=== PATIENT | male | born 1990 | race Caucasian/White ===

== ENCOUNTER 2017-11-30 18:25 | Emergency (ER) | payer MEDICAID, SELFPAY ==
[2017-11-30 18:29] VITALS: BP 158/112; PULSE 87; RESP 16; TEMP 36.5; O2SAT 96; BMI 20.5
[2017-11-30 18:47] LABS: Microscopic, Urine URINE MICROSCOPIC (MICROSCOPIC)
[2017-11-30 18:49] LABS: Appearance,Urine CLEAR (Clear); Bilirubin,Urine Negative (Negative); Blood, Urine Negative (Negative); Color,Urine YELLOW (Yellow); Glucose,Urine (UA) Negative (Negative); Ketones,Urine Negative (Negative); Leukocyte Esterase,Urine Negative (Negative); Nitrate,Urine Negative (Negative); PH,Urine 5.5 (5.0-8.5); Protein,Urine Negative (Negative); Specific Gravity, Urine >= 1.030 (1.005-1.030); Urobilinogen,Urine 0.2 EU/dl (0.2)
[2017-11-30 18:51] LABS: Amorphous Sediment,Urine Trace /lpf; Mucus,Urine Trace /lpf; Squamous Epithelial Cell,Urine Occasional #/hpf (0-5)
--- NOTE | 2017-11-30 20:30 | HMH.EDGENADL ---
ED Disposition Clinical Impression: Low back pain Qualifiers: Chronicity: acute Back pain laterality: midline Sciatica presence: without sciatica Qualified Code(s): M54.5 - Low back pain Disposition: Home, Self-Care Condition on Discharge: Good Instructions: DI for Low Back Pain Additional Instructions: You are being provided with a list of physicians available for follow-up of your condition. Please call a physician on this list to arrange a follow-up appointment as soon as possible. Additional instructions for BACK PAIN: See your physician as soon as possible for further evaluation. Return immediately if back pain becomes intolerable, or if fever, numbness or weakness of your legs, loss of control of your bowels or bladder. Prescriptions: Ibuprofen [Ibuprofen 800mg Tab] 800 mg PO Q8HP PRN #15 tab PRN Reason: Moderate Pain Methocarbamol [Robaxin 750mg Tab] 750 mg PO QIDP PRN #20 tab PRN Reason: Muscle Spasm - Critical Care Critical Care Time: No Attestation: On 11/30/17, the high probability of a clinically significant, sudden or life threatening deterioration of the following system(s) required my full and direct attention, intervention and personal management. The time I documented below is in addition to time spent performing reported procedures but includes the following listed in this critical care notation. Medical Decision Making - Teddy Inquiry Pt receiving controlled substance: No Vital Signs: 11/30/17 18:29 11/30/17 20:37 Temperature 97.7 F Temperature Source Oral Pulse Rate [Brachial] 87 79 Respiratory Rate 16 16 Blood Pressure [Right Arm] 158/112 148/80 Blood Pressure Mean [Right Arm] 127 102 Blood Pressure Source [Right Arm] Automatic Cuff Manual Cuff/ Auscultation Blood Pressure Position [Right Arm] Sitting Supine 02 Sat by Pulse Oximetry 96 100 Oxygen Delivery Method Room Air Room Air - Lab Data Lab Results 11/30/17 18:43: Urine Color Yellow, Urine Appearance Clear, Urine pH 5.5, Ur Specific [place] >= 1.030, Urine Protein Negative, Urine Glucose (UA) Negative, Urine Ketones Negative, Urine Blood Negative, Urine Nitrate Negative, Urine Bilirubin Negative, Urine Urobilinogen 0.2, Ur Leukocyte Esterase Negative, Urine WBC 5-10, Ur Squamous Epith Cells Occasional, Amorphous Sediment Trace, Urine Mucus Trace Orders (Tests/Meds): ED MEDICATIONS Discontinued Medications Generic Name Dose Route Start Last Admin Trade Name Willam PRN Reason Stop Dose Admin Ibuprofen 800 mg 11/30/17 20:37 Motrin 400mg Tablet PO 11/30/17 20:38 ONCE ONE Methocarbamol 500 mg 11/30/17 20:43 Methocarbamol 500mg Tablet PO 11/30/17 20:44 ONCE ONE ORDERS Category Date Time Status Lumbar spine minimum 4 views [XR lumbar spine min 4V] Exams 11/30/17 20:36 Taken Stat Medical Decision Narrative: I estimate there is LOW risk for ABDOMINAL AORTIC ANEURYSM, ACUTE AORTIC DISSECTION, CAUDA EQUINA SYNDROME, EPIDURAL MASS LESION, OR CORD COMPRESSION, thus I consider the discharge disposition reasonable. General Adult HPI - General Chief complaint: Back Pain/Injury Stated complaint: Back Pain Time Seen by Provider: 11/30/17 20:30 Mode of Arrival: Ambulatory Limitations: No Limitations Description of Symptoms (Recalled from ER Triage Doc. by RN): LOWER BACK PAIN STARTED THIS MORNING - History of Present Illness HPI narrative: The patient complains of a 1-2 day history of low back pain lower lumbar. Denies radiation, no leg pain. Denies numbness or weakness of extremities. Denies bowel or bladder symptoms and denies loss of bowel or bladder control. No numbness in the groin. No medications taken at home for the pain. He does not recall any injury at all. 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 Did not have any injury at work. No fever. - Related Data Previous Rx's Medication Instructions Recorded Ibuprofen [Ibuprofen 800mg
--- NOTE | 2017-11-30 20:36 | XR_ITS ---
XR lumbar spine min 4V COMPARISON: None HISTORY: Low back pain, no injury TECHNIQUE: AP lateral and oblique views and spot view lumbosacral junction FINDINGS: There is some straightening normal curvature suggesting muscle spasm. L1-L5 appear intact. Disc spaces are well maintained throughout. There is no pars defect. There is no degenerative change. The SI joints are normal. IMPRESSION: Possible mild muscle spasm otherwise normal study
[2017-11-30 20:37] VITALS: BP 148/80; PULSE 79; RESP 16; O2SAT 100
[2017-11-30 21:28] VITALS: BP 151/80; PULSE 82; O2SAT 98
[2017-11-30 21:38] VITALS: BP 0/0; PULSE 0; RESP 0; TEMP -17.7; TEMP 0; O2SAT 0
== END 2017-11-30 21:38 | disposition home or self-care (01) ==
PROVIDERS: Emergency Medicine; Emergency Provider Emergency Medicine
DX: M54.5 Low back pain (principal); F17.210 Nicotine dependence, cigarettes, uncomplicated; Z88.0 Allergy status to penicillin; Z88.6 Allergy status to analgesic agent
CPT/HCPCS: 72110; 81001; 99282

== ENCOUNTER 2017-12-18 17:10 | Emergency (ER) | payer MEDICAID, SELFPAY ==
[2017-12-18 17:22] VITALS: BP 141/103; PULSE 92; RESP 18; TEMP 36.9; O2SAT 97; BMI 20.4
--- NOTE | 2017-12-18 17:36 | HMH.EDUTC ---
[facility] [place] Clinical Impression: Finger injury Qualifiers: Encounter type: initial encounter Laterality: right Qualified Code(s): S69.91XA - Unspecified injury of right wrist, hand and finger(s), initial encounter Disposition: Home, Self-Care Condition on Discharge: Good Instructions: DI for Laceration Repair -- Finger, DI for Laceration Repair With Dermabond Additional Instructions: Follow up with family doctor Keep wound area clean and dry Take medication as prescribed If you see redness or swelling to the area that may indicate infection go straight to Family doctor or ER as needed Over the counter Motrin or Tylenol as needed for fever or pain Prescriptions: cephALEXin [Keflex 500mg Cap] 500 mg PO Q6H #28 cap Time of Disposition: 18:09 Medical Decision Making - Medical Records Medical records reviewed: Yes: I reviewed the patient's medical records. - Teddy Inquiry Pt receiving controlled substance: No Teddy was queried for this patient: No Vital Signs: 12/18/17 17:22 Temperature 98.4 F Temperature Source Temporal Artery Scan Pulse Rate [Brachial] 92 H Respiratory Rate 18 Blood Pressure [Right Arm] 141/103 Blood Pressure Mean [Right Arm] 115 Blood Pressure Position [Right Arm] Sitting 02 Sat by Pulse Oximetry 97 - Reevaluation(s) Time: 18:03 Reevaluation #1: Finger was soaked in hybacleanse and sterile water to clean wound. Wound area cleaned well with 4x4 and betadine Patient tolerated well. superficial wound skin peeled back Skin flap closed with dermabond Patient tolerated well Patient state that he is allergic to Penicillin but he is able to take Keflex without reaction [facility] [place] HPI - General Stated complaint: ao [id number] lac r hand 3 finger Time Seen by Provider: 12/18/17 17:40 Mode of Arrival: Ambulatory Source of Information: Patient Limitations: No Limitations Description of Symptoms (Recalled from Triage Doc. by RN): CUT RT INDEX FINGER AROUND 8AM. CLOSED CUT TO FINGER, DIRTY AND NOT BLEEDING. 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 raked his right index finger over a nail causing a small cut on his finger State that he continued to work throughout the day and noticed at the end of the day the wound was closed and there was dirt under the skin States that the looked at it and it wasn't deep but pulled the skin back on his finger and he had dirt all under the flap of skin State that he tried to get it cleaned out but couldn't and was worried that it may get infected so he came up to have it looked at - Related Data Previous Rx's Medication Instructions Recorded cephALEXin [Keflex 500mg Cap] 500 mg PO Q6H #28 cap 12/18/17 Allergies Allergy/AdvReac Type Severity Reaction Status Date / Time codeine [CODEINE] Allergy Mild Verified 11/30/17 18:33 Penicillins [PENICILLINS] Allergy Unknown Verified 11/30/17 18:33 - Worker's Comp Is this a Worker's Comp case?: No [facility] History I have reviewed the patient's past medical history: Yes - Social History Smoking Status: Current every day smoker Tobacco Type: cigarettes Alcohol Intake: never - Psychiatric History Expresses thoughts of harming self/others: None Suicide Plan Description: No Plan ROS Obtained: Yes All systems reviewed & no additional complaints Physical Exam - General General appearance: alert, in no apparent distress - ENT ENT exam: Present: normal exam, normal oropharynx, mucous membranes moist, TM's normal bilaterally, normal external ear exam - Respiratory Respiratory exam: Present: normal lung sounds bilaterally. Absent: respiratory distress - Cardiovascular Cardiovascular exam: Present: re
--- NOTE | 2017-12-18 17:56 | ED_ITS ---
[facility] [place] Disposition Clinical Impression: Finger injury Qualifiers: Encounter type: initial encounter Laterality: right Qualified Code(s): S69.91XA - Unspecified injury of right wrist, hand and finger(s), initial encounter Disposition: Home, Self-Care Condition on Discharge: Good Instructions: DI for Laceration Repair -- Finger, DI for Laceration Repair With Dermabond Additional Instructions: Follow up with family doctor Keep wound area clean and dry Take medication as prescribed If you see redness or swelling to the area that may indicate infection go straight to Family doctor or ER as needed Over the counter Motrin or Tylenol as needed for fever or pain Prescriptions: cephALEXin [Keflex 500mg Cap] 500 mg PO Q6H #28 cap Time of Disposition: 18:09 Medical Decision Making - Medical Records Medical records reviewed: Yes: I reviewed the patient's medical records. - Teddy Inquiry Pt receiving controlled substance: No Teddy was queried for this patient: No Vital Signs: 12/18/17 17:22 Temperature 98.4 F Temperature Source Temporal Artery Scan Pulse Rate [Brachial] 92 H Respiratory Rate 18 Blood Pressure [Right Arm] 141/103 Blood Pressure Mean [Right Arm] 115 Blood Pressure Position [Right Arm] Sitting 02 Sat by Pulse Oximetry 97 - Reevaluation(s) Time: 18:03 Reevaluation #1: Finger was soaked in hybacleanse and sterile water to clean wound. Wound area cleaned well with 4x4 and betadine Patient tolerated well. superficial wound skin peeled back Skin flap closed with dermabond Patient tolerated well Patient state that he is allergic to Penicillin but he is able to take Keflex without reaction [facility] [place] HPI - General Stated complaint: ao [id number] lac r hand 3 finger Time Seen by Provider: 12/18/17 17:40 Mode of Arrival: Ambulatory Source of Information: Patient Limitations: No Limitations Description of Symptoms (Recalled from Triage Doc. by RN): CUT RT INDEX FINGER AROUND 8AM. CLOSED CUT TO FINGER, DIRTY AND NOT BLEEDING. 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 raked his right index finger over a nail causing a small cut on his finger State that he continued to work throughout the day and noticed at the end of the day the wound was closed and there was dirt under the skin States that the looked at it and it wasn't deep but pulled the skin back on his finger and he had dirt all under the flap of skin State that he tried to get it cleaned out but couldn't and was worried that it may get infected so he came up to have it looked at - Related Data Previous Rx's Medication Instructions Recorded cephALEXin [Keflex 500mg Cap] 500 mg PO Q6H #28 cap 12/18/17 Allergies Allergy/AdvReac Type Severity Reaction Status Date / Time codeine [CODEINE] Allergy Mild Verified 11/30/17 18:33 Penicillins [PENICILLINS] Allergy Unknown Verified 11/30/17 18:33 - Worker's Comp Is this a Worker's Comp case?: No [facility] History I have reviewed the patient's past medical history: Yes - Social History Smoking Status: Current every day smoker Tobacco Type: cigarettes Alcoho
[2017-12-18 18:07] VITALS: BP 141/103; PULSE 92; RESP 18; TEMP 36.9; O2SAT 97
== END 2017-12-18 18:13 | disposition home or self-care (01) ==
PROVIDERS: Emergency Provider Nurse Practitioner
DX: S61.210A Laceration without foreign body of right index finger without damage to nail, initial encounter (principal); W45.0XXA Nail entering through skin, initial encounter; Y92.89 Other specified places as the place of occurrence of the external cause; Z23 Encounter for immunization
CPT/HCPCS: 12001; 90471; 90714; 99201

== ENCOUNTER → 2018-05-09 15:00 | Outpatient (CLI) | payer MEDICAID, SELFPAY | PROVIDERS: PCP Podiatrist; Visit Provider Podiatrist | DX: Z51.89 Encounter for other specified aftercare (principal); L03.90 Cellulitis, unspecified; L02.91 Cutaneous abscess, unspecified | CPT/HCPCS: 87070; 87077; 87186; 87205 ==

== ENCOUNTER → 2018-05-12 16:29 | Outpatient (CLI) | payer MEDICAID, SELFPAY ==
[2018-05-12 16:48] LABS: Basophils % 0.7 % (0.1-2.0); Eosinophils # 0.2 K/mm3 (0.0-0.4); Eosinophils % 3.2 % (0.1-12.0); Hematocrit 47.1 % (42.0-52.0); Hemoglobin 15.7 g/dL (14.1-18.0); Lymphocytes # 3.6 K/mm3 (0.7-4.5); Lymphocytes % 57.8 K/mm3 (10-50); Mean Corpuscular HGB Conc 33.4 g/dL (31.8-35.4); Mean Corpuscular Hemoglobin 30.9 pg (27.0-31.2); Mean Corpuscular Volume 92.3 fl (80-94); Mean Platelet Volume 6.9 fl (7.4-10.4); Monocytes # 0.6 K/mm3 (0.1-1.0); Neutrophils # 1.8 K/mm3 (1.8-7.8); Neutrophils % 28.3 % (37.0-80.0); Platelet Count 383 K/mm3 (142-424); White Blood Count 6.2 K/mm3 (4.8-10.8)
[2018-05-12 16:52] LABS: MANUAL DIFFERENTIAL MANUAL DIFFERENTIAL (MANUAL DIFF)
[2018-05-12 17:27] LABS: Alanine Aminotransferase 22 U/L (12-78); Albumin Level 4.1 gm/dL (3.4-5.0); Albumin/Globulin Ratio 1.1 (1.1-1.8); Alkaline Phosphatase 69 U/L (46-116); Anion Gap 11.2 mEq/L (5-15); Aspartate Amino Transferase 21 U/L (15-37); Bilirubin,Total 0.2 mg/dL (0.2-1.0); Blood Urea Nitrogen 7 mg/dL (7-18); C-Reactive Protein < 0.2 mg/L (0.0-0.9); Calcium 9.3 mg/dL (8.5-10.1); Carbon Dioxide 31 mmol/L (21.0-32.0); Chloride 101 mmol/L (98-107); Creatinine,Serum 1.01 mg/dL (0.70-1.30); Estimated Glomerular Filt Rate 90 ml/min (>60); GFR (African American) 109 ML/MIN (>60); Globulin 3.7 gm/dl (1.3-3.2); Glucose 93 mg/dL (74-106); Potassium 4.2 mmoL/L (3.5-5.1); Sodium 139 mmol/L (136-145); Total Protein,Serum 7.8 gm/dL (6.4-8.2)
[2018-05-12 17:32] LABS: Eosinophils % 5 % (0-3); Lymphocytes % 45 % (10-50); Monocytes % 6 % (2-9); Neutrophils % 39 % (42-76); Platelet Estimate Normal; RBC Morphology Normal; Total Cells Counted 100
[2018-05-12 17:50] LABS: Erythrocyte Sedimentation Rate 18 mm/hr (0-15)
== END ==
PROVIDERS: PCP Podiatrist; Visit Provider Podiatrist
DX: Z51.89 Encounter for other specified aftercare (principal); L02.91 Cutaneous abscess, unspecified; L03.90 Cellulitis, unspecified
CPT/HCPCS: 36415; 80053; 85007; 85025; 85651; 86140

== ENCOUNTER 2018-06-03 12:56 | Outpatient (RCR) | payer MEDICAID, SELFPAY ==
--- NOTE | 2018-06-03 13:40 | HMH.PTOPWND ---
Rehab Outpt Wound Evaluation Rehab OP Wound Evaluation Start: 06/03/18 13:33 Freq: Status: Active Protocol: Document 06/03/18 13:33 PWASHLEY (Rec: 06/03/18 13:40 [email or web address] [id number]) Electronically Signed By Donaldo Live, PT 06/03/18 13:33 Subjective/History History History This is the initial OP wound clinic evaluation for Calin Kauffman. Pt is a 27 y/o male referred to PT for wound on medial R achilles/calcaneus. Pt rpeorts wound appearred ~ 1-2 weeks ago w/ insidious onset. Subjective Subjective Pt reports he has dreesed wound at home per DPM advice Wound Eval Wound Right Upper Medial Heel Wound Type Blister Is This a Chronic Wound No Wound Length (cm) 0.5 Wound Width (cm) 0.4 Wound Bed Appearance [place] Percentage Granulated (%) 100 Wound Margins Description epithelialized Drainage Amount None Drainage Odor No Odor Dressing Status Dry & Intact Wound Topical Solution/Irrigant Saline Irrigant Antibiotic Irrigant Wound Secondary Dressing Type Absorbant Pad Comment polymem dot Wound Debridement Method Sharps Forceps Wound Debridement Result Stopped Due to Bleeding Dressing Change Date 06/03/18 Wound Closure Date 06/03/18 Dressing Change Patient Tolerance Tolerated Well Wound Problems/Impairments Impairments Problems/Impairmments Wound Care Needs Prognosis Rehab Potential Good Comment wound epithelialized Clinical Impression Consistent with Diagnosis Yes Short Term Goals Number of Weeks 2 Patient to be Ind w/ Home Wound Care/ Yes Dressing Changes [employer] Goals Number of Weeks 4 Decrease Wound Area Yes: 100% Outpatient Therapy Plan of Care Treatment Plan May Include Wound Care Yes Frequency Times per week 1 Duration Number of Weeks 4 Addendums This patient is a candidate for social No or vocational rehab? Patient/Guardian verbally acknowledges Yes understanding of treatment program and consents to further treatment? Patient/Guardian verbally acknowledges Yes understanding of diagnosis, prognosis and goals for treatment? G -code Required No Eval Complexity PT Charges 48993 - Low Complexity
== END 2018-06-03 12:57 | disposition home or self-care (01) ==
LOC: PT 12:56
PROVIDERS: PCP Podiatrist; Visit Provider Podiatrist
DX: Z51.81 Encounter for therapeutic drug level monitoring (principal); L03.115 Cellulitis of right lower limb; B95.62 Methicillin resistant Staphylococcus aureus infection as the cause of diseases classified elsewhere
CPT/HCPCS: 97161

== ENCOUNTER 2020-10-19 23:38 | Emergency (ER) | payer MEDICAID, SELFPAY ==
[2020-10-19 23:38] VITALS: BP 169/112; PULSE 104; RESP 22; TEMP 36.7; O2SAT 98; BMI 19.5
--- NOTE | 2020-10-19 23:46 | ECG_ITS ---
APPROVED REPORT Exam: Resting ECG HR:87 bpm ECG Measurements Heart Rate 87 AXES CO 144 P 81 QRSd 78 QRS 80 QT 354 T 64 QTc 425 Conclusion Normal sinus rhythm ST abnormality, possible digitalis effect Abnormal ECG Electronically signed by : Richard Roger, 10/20/2020 21:16:09
--- NOTE | 2020-10-20 00:07 | XR_ITS ---
PROCEDURE: XR CHEST 2V CLINICAL HISTORY: OD Overdose COMPARISON: No exams were available for comparison FINDINGS: The cardiomediastinal silhouette and pulmonary vascularity are within normal limits. The lungs are clear without infiltrates, suspicious nodules, or pleural effusions. No acute bony abnormalities. IMPRESSION: No acute findings. Dictated by: Zacarias Gabriel MD 10/20/2020 05:10 Zacarias Gabriel MD in OV 10/20/2020 05:10
[2020-10-20 00:08] VITALS: BP 135/89; PULSE 78; RESP 18; O2SAT 98
[2020-10-20 00:21] LABS: Microscopic, Urine URINE MICROSCOPIC (MICROSCOPIC)
[2020-10-20 00:26] LABS: Alanine Aminotransferase 28 U/L (12-78); Albumin/Globulin Ratio 1.6 (1.1-1.8); Alkaline Phosphatase 65 U/L (38-126); Anion Gap 12.5 mEq/L (5-15); Aspartate Amino Transferase 43 U/L (17-59); Bilirubin,Total 0.3 mg/dl (0.2-1.3); Blood Urea Nitrogen 11 mg/dl (9-20); Calcium 9.3 mg/dl (8.4-10.2); Carbon Dioxide 29 mmol/L (22.0-30.0); Chloride 101 mmol/L (98-107); Creatinine Clearance Estimated 97 mL/min (50-200); Estimated Glomerular Filt Rate 115 ml/min (>60); GFR (African American) 139 ML/MIN (>60); Globulin 3.2 g/dL (1.3-3.2); Glucose 237 mg/dl (74-100); Potassium 4.5 mmoL/L (3.5-5.1); Sodium 138 mmol/L (136-145); Total Protein,Serum 8.2 g/dl (6.3-8.2)
[2020-10-20 00:28] LABS: Appearance,Urine CLEAR (Clear); Bilirubin,Urine Negative (Negative); Blood, Urine 1+ (Negative); Color,Urine YELLOW (Yellow); Glucose,Urine (UA) 3+ (Negative); Ketones,Urine Negative (Negative); Leukocyte Esterase,Urine Negative (Negative); Nitrate,Urine Negative (Negative); PH,Urine 5.5 (5.0-8.5); Protein,Urine 2+ (Negative); Specific Gravity, Urine >= 1.030 (1.005-1.030); Urobilinogen,Urine 0.2 EU/dl (0.2)
[2020-10-20 00:30] VITALS: BP 133/93; PULSE 82; RESP 18; O2SAT 98
[2020-10-20 00:30] LABS: Acetaminophen < 10 ug/ml (10-30); Ethyl Alcohol < 10 mg/dl (0-10); Salicylate < 1.0 mg/dL (2.0-20.0)
[2020-10-20 00:36] LABS: Hematocrit 46.7 % (42.0-52.0); Hemoglobin 14.9 g/dL (14.1-18.0); Mean Corpuscular Hemoglobin 30.6 pg (27.0-31.2); Mean Corpuscular Volume 95.8 fl (80-94); Platelet Count 237 K/mm3 (142-424); Red Blood Count 4.88 M/mm3 (4.60-6.20); Red Cell Distribution Width 12.2 % (11.5-17.5); White Blood Count 13.9 K/mm3 (4.8-10.8)
[2020-10-20 00:37] LABS: Basophils # 0.1 K/mm3 (0-0.2); Basophils % 0.3 % (0.1-2.0); Eosinophils % 0.2 % (0.1-12.0); Lymphocytes # 1.2 K/mm3 (0.7-4.5); Lymphocytes % 8.8 % (10-50); Mean Platelet Volume 7.9 fl (7.4-10.4); Monocytes % 7.3 % (1.7-9.3); Neutrophils # 9.4 K/mm3 (1.8-7.8); Neutrophils % 67.5 % (37.0-80.0)
[2020-10-20 00:40] LABS: Troponin I < 0.01 ng/ml (0.00-0.034)
--- NOTE | 2020-10-20 00:42 | HMH.EDAMS ---
ED Disposition Clinical Impression: Poisoning by opiate or related narcotic Disposition: Home, Self-Care Condition on Discharge: Good Instructions: DI for Drug Overdose in Adults Additional Instructions: call pcp for follow up Referrals: Darya Garces APRN [Primary Care Provider] - - Critical Care Critical Care Time: No Attestation: On 10/19/20, the high probability of a clinically significant, sudden or life threatening deterioration of the following system(s) required my full and direct attention, intervention and personal management. The time I documented below is in addition to time spent performing reported procedures but includes the following listed in this critical care notation. Medical Decision Making - Medical Records Medical records reviewed: Yes: I reviewed the patient's medical records. - Teddy Inquiry Pt receiving controlled substance: No Vital Signs: 10/19/20 23:38 Temperature 98.0 F Temperature Source Oral Pulse Rate [Left Radial] 104 H Respiratory Rate 22 Blood Pressure [Right Arm] 169/112 H Blood Pressure Mean [Right Arm] 131 Blood Pressure Source [Right Arm] Automatic Cuff Blood Pressure Position [Right Arm] Supine 02 Sat by Pulse Oximetry 98 Oxygen Delivery Method Room Air - Lab Data Lab results reviewed: Yes: I reviewed the patient's lab results. Lab Results 10/20/20 00:00: WBC 13.9 H, RBC 4.88, Hgb 14.9, Hct 46.7, MCV 95.8 H, MCH 30.6, MCHC 32.0, RDW 12.2, Plt Count 237, MPV 7.9, Neut % (Auto) 67.5, Lymph % (Auto) 8.8 L, [place] % (Auto) 7.3, Eos % (Auto) 0.2, Baso % (Auto) 0.3, Neut # (Auto) 9.4 H, Lymph # (Auto) 1.2, [place] # (Auto) 1.0, Eos # (Auto) 0.0, Baso # (Auto) 0.1 10/20/20 00:00: Sodium 138, Potassium 4.5, Chloride 101, Carbon Dioxide 29, Anion Gap 12.5, BUN 11, Creatinine 0.80, Estimated Creat Clear 97, Estimated GFR 115, Est GFR ( Amer) 139, Glucose 237 H, Calcium 9.3, Total Bilirubin 0.3, AST 43, ALT 28, Alkaline Phosphatase 65, Troponin I < 0.01, Total Protein 8.2, Albumin 5.0, Globulin 3.2, Albumin/Globulin Ratio 1.6, Salicylates < 1.0 L, Acetaminophen < 10 L 10/20/20 00:00: Plasma/Serum Alcohol < 10 10/20/20 00:14: Urine Color Yellow, Urine Appearance Clear, Urine pH 5.5, Ur Specific [place] >= 1.030, Urine Protein 2+, Urine Glucose (UA) 3+, Urine Ketones Negative, Urine Blood 1+, Urine Nitrate Negative, Urine Bilirubin Negative, Urine Urobilinogen 0.2, Ur Leukocyte Esterase Negative Result diagrams: 10/20/20 00:00 10/20/20 00:00 Orders (Tests/Meds): ED MEDICATIONS Generic Name Dose Route Start Last Admin Trade Name Freq PRN Reason Stop Dose Admin Sodium Chloride 1,000 mls @ 999 mls/hr 10/20/20 00:15 Sod Chlor 0.9% 1000ml Bag IV 10/20/20 01:15 .Q1H1M [facility] ORDERS Category Date Time Status XR chest 2V Stat Exams 10/20/20 00:07 Ordered Drug Screen,Urine Stat Lab 10/20/20 00:14 Received Troponin I Q3H Lab 10/20/20 03:15 Ordered Troponin I Q3H Lab 10/20/20 06:15 Ordered Urinalysis and Microscopic Stat Lab 10/20/20 00:14 Results - Radiology Data #1 Image(s): Chest Image Reviewed: Yes I reviewed the patient's radiology image Preliminary Findings: Normal/NAD - ECG Data Tracing #1 Normal Sinus Rhythm: Yes Ischemic changes: non-specific ST-T wave changes - Reevaluation(s) Time: 00:50 Reevaluation #1: improved Medical Decision Narrative: despite pt hx of no opiates - his presentation and response to narcan suggest opiate use Altered Mental Status HPI - General Chief Complaint: Overdose Stated Complaint: Overdose Time Seen by Provider: 10/20/20 00:00 Mode of Arrival: EMS Source of Information: Patient, Medical Record Limitations: No Limitations Description of Symptoms (Recalled from ER Triage Doc. by RN): EMS reports pt was unresponsive w/ O2 sat of 68% on arrival. 2mg nasal narcan given and pt became responsive. Pt reports he remembers smoking some weed and then I woke up. Pt denies candace
[2020-10-20 00:44] LABS: Bacteria,Urine 1+ /lpf; Mucus,Urine 1+ /lpf
[2020-10-20 01:00] VITALS: BP 143/95; PULSE 83; RESP 18; TEMP 36.9; O2SAT 97
[2020-10-20 01:06] LABS: Amphetamine/Metha Screen,Urine Negative ng/ml (<1000)
[2020-10-20 01:12] LABS: Barbiturates Screen,Urine Negative ng/ml (<200); Benzodiazepines Screen,Urine Negative ng/ml (<200); Cannabinoid Screen,Urine Positive ng/ml (<50); Cocaine Screen,Urine Negative ng/ml (<300); Methadone Screen,Urine Negative ng/ml (<300); Opiate Screen,Urine Positive ng/ml (<300); Phencyclidine Screen,Urine Negative ng/ml (<25)
== END 2020-10-20 01:08 | disposition home or self-care (01) ==
PROVIDERS: Emergency Provider Emergency Medicine; PCP Nurse Practitioner Family
DX: T40.2X1A Poisoning by other opioids, accidental (unintentional), initial encounter (principal); F12.90 Cannabis use, unspecified, uncomplicated; Z72.0 Tobacco use; Z88.6 Allergy status to analgesic agent; Z88.0 Allergy status to penicillin
CPT/HCPCS: 71046; 80053; 80305; 80329; 81001; 84484; 85025; 93005; 96365; 96375; 99283; J2405

== ENCOUNTER 2021-05-01 13:52 | Emergency (ER) | payer MEDICAID, SELFPAY ==
[2021-05-01 15:14] VITALS: BP 0/0; PULSE 0; RESP 0; TEMP -17.7; TEMP 0; O2SAT 0
== END 2021-05-01 15:16 | disposition left against medical advice (07) ==
LOC: ER 13:58
PROVIDERS: Emergency Provider Emergency Medicine
DX: Z53.21 Procedure and treatment not carried out due to patient leaving prior to being seen by health care provider (principal)
CPT/HCPCS: 99211

== ENCOUNTER 2021-05-02 10:25 | Emergency (ER) | payer MEDICAID, SELFPAY ==
[2021-05-02 10:35] VITALS: BP 155/93; PULSE 66; RESP 18; O2SAT 99; BMI 18.0
[2021-05-02 11:40] VITALS: BP 155/93; PULSE 66; RESP 18; TEMP 36.7; O2SAT 99; BMI 18.1
--- NOTE | 2021-05-02 12:05 | HMH.EDUTC ---
[facility] [place] Disposition Clinical Impression: Abscess Disposition: Home, Self-Care Condition on Discharge: Good Instructions: Trimethoprim/Sulfamethoxazole (Alternative Therapy), Mupirocin, DI for Skin Abscess Additional Instructions: *Start antibiotic(s) immediately and be sure to take as ordered for the FULL length of time although you may be feeling better or start to see improvement in the next 24-48 hours Soak foot in warm water and epson salt 15min every couple of hours to help *Monitor closely. Outlined redness so that you can monitor easier. Follow up immediately for new or worsening symptoms including but not limited to redness, swelling, streaking from site fever or chills. Use cream as prescribed *Warm compress 15 minutes 3-4 times day *Never squeeze or pop these on your own. Seek immediate medical attention next time this occurs *Monitor Temp. Tylenol every 4 hours as needed and ibuprofen every 6 hours as needed (as long as your primary care doctor has told you that it is ok to take both. For fever, aches, pain. ER if no less that 101 despite Tylenol and ibuprofen Follow up with your family doctor/primary care physician in the next 48-72 hours if no improvement Prescriptions: Sulfamethoxazole/Trimethoprim [Bactrim DS tablet] 1 each PO BID 10 Days #20 tab Transmission Status: Pending to [facility] Mupirocin Calcium [Mupirocin 2% Cream 15gm] 1 applicatio TP TID #1 tube Transmission Status: Pending to [facility] Referrals: Provider,Referral, [Primary Care Provider] - As needed Time of Disposition: 12:15 Medical Decision Making - Teddy Inquiry Pt receiving controlled substance: No Teddy was queried for this patient: No Vital Signs: 05/02/21 10:35 05/02/21 11:40 Temperature 98.0 F Temperature Source Oral Pulse Rate [Left Radial] 66 66 Respiratory Rate 18 18 Blood Pressure [Right Arm] 155/93 H 155/93 H Blood Pressure Mean [Right Arm] 113 113 Blood Pressure Source [Right Arm] Automatic Cuff Automatic Cuff Blood Pressure Position [Right Arm] Sitting Sitting 02 Sat by Pulse Oximetry 99 99 Oxygen Delivery Method Room Air Room Air [facility] [place] HPI - General Stated complaint: sore on right foot Time Seen by Provider: 05/02/21 12:05 Mode of Arrival: Ambulatory Source of Information: Patient Limitations: No Limitations Description of Symptoms (Recalled from Triage Doc. by RN): c/o red area on top of right foot after wearing wet boots a few days ago HEENT Symptoms (Recalled from RN notes): No Resp Symptoms (Recalled from RN notes): No Skin Symptoms (Recalled from RN notes): Yes MS Symptoms (Recalled from RN notes): Yes Functional Status (Recalled from RN notes): WNL - History of Present Illness Provider Complaint: Patient states that wore some boots the other day and noticed he had a hard red spot on the top of his foot betweek his big toe and second toe State that he has been having some swelling and redness and he has been soaking it but it still hurting and red so he came in Reports has history of abscess and staph - Related Data Previous Rx's Medication Instructions Recorded Mupirocin Calcium [Mupirocin 2% 1 applicatio TP TID #1 tube 05/02/21 Cream 15gm] Sulfamethoxazole/Trimethoprim 1 each PO BID 10 Days #20 tab 05/02/21 [Bactrim DS tablet] Allergies Allergy/AdvReac Type Severity Reaction Status Date / Time codeine [CODEINE] Allergy Mild Verified 05/27/18 14:35 Penicillins [PENICILLINS] Allergy Unknown Verified 05/27/18 14:35 - Worker's Comp Is this a Worker's Comp case?: No [facility] History - Hepatitis A Screen Drug use history?: No High risk sexual behaviors?: No History of sexually transmitted infection?: No Currently employed?: No Childcare worker?: No Do you have indoor plumbing?: Yes Do you have electricity?: Yes Attestation statement:: This patient has been screened for Hepatitis A risk factors. I have reviewed the patient's past medical history: Yes Other Surg
[2021-05-02 12:20] VITALS: BP 155/93; PULSE 66; RESP 18; TEMP 36.7; O2SAT 99
== END 2021-05-02 12:21 | disposition home or self-care (01) ==
PROVIDERS: Emergency Provider Nurse Practitioner
DX: L02.611 Cutaneous abscess of right foot (principal); F17.210 Nicotine dependence, cigarettes, uncomplicated; Z88.0 Allergy status to penicillin; Z88.5 Allergy status to narcotic agent
CPT/HCPCS: 99202; G0463

== ENCOUNTER 2022-03-10 17:45 | Emergency (ER) | payer MEDICAID, SELFPAY ==
[2022-03-10 18:00] VITALS: BP 102/71; PULSE 76; RESP 17; TEMP 36.8; O2SAT 98; BMI 16.7
--- NOTE | 2022-03-10 18:17 | HMH.EDUTC ---
[facility] [place] Disposition Clinical Impression: Tympanic membrane disorder Qualifiers: Laterality: left Qualified Code(s): H73.92 - Unspecified disorder of tympanic membrane, left ear Disposition: Home, Self-Care Condition on Discharge: Good Instructions: Cerumen Impaction, How to Irrigate Your Ear Additional Instructions: take meds as ordered follow up with pcp if worsen or no improvement return or be seen in ed Prescriptions: Loratadine [Claritin 10mg Tablet] 10 mg PO DAILY #30 tab Transmission Status: Pending to [facility] Fluticasone Propionate [Flonase 50mcg nasal spray 16gm] 1 spr NS DAILY 14 Days #9.9 ml Transmission Status: Pending to [facility] Referrals: Provider,Referral, MD [Primary Care Provider] - Time of Disposition: 18:26 Medical Decision Making - Teddy Inquiry Pt receiving controlled substance: No Vital Signs: 03/10/22 18:00 Temperature 98.3 F Temperature Source Oral Pulse Rate [Right Brachial] 76 Respiratory Rate 17 Blood Pressure [Right Arm] 102/71 L Blood Pressure Mean [Right Arm] 81 Blood Pressure Source [Right Arm] Automatic Cuff Blood Pressure Position [Right Arm] Sitting 02 Sat by Pulse Oximetry 98 Oxygen Delivery Method Room Air [facility] [place] HPI - General Chief complaint: Urgent Treatment Center Stated complaint: cant hear out of left ear Time Seen by Provider: 03/10/22 18:21 Mode of Arrival: Ambulatory Source of Information: Patient Limitations: No Limitations Description of Symptoms (Recalled from Triage Doc. by RN): PATIENT C/O DECREASED HEARING INLEFT EAR SINCE SATURDAY HEENT Symptoms (Recalled from RN notes): Yes Resp Symptoms (Recalled from RN notes): No Skin Symptoms (Recalled from RN notes): No MS Symptoms (Recalled from RN notes): No Functional Status (Recalled from RN notes): WNL - History of Present Illness Provider Complaint: 31 yr old male presents for decrease hearing in left ear. pt states family cleaned out ear last pm but still cant hear - Related Data Previous Rx's Medication Instructions Recorded Mupirocin Calcium [Mupirocin 2% 1 applicatio TP TID #1 tube 05/02/21 Cream 15gm] Sulfamethoxazole/Trimethoprim 1 each PO BID 10 Days #20 tab 05/02/21 [Bactrim DS tablet] Fluticasone Propionate [Flonase 1 spr NS DAILY 14 Days #9.9 ml 03/10/22 50mcg nasal spray 16gm] Loratadine [Claritin 10mg 10 mg PO DAILY #30 tab 03/10/22 Tablet] Allergies Allergy/AdvReac Type Severity Reaction Status Date / Time codeine [CODEINE] Allergy Mild Verified 05/27/18 14:35 Penicillins [PENICILLINS] Allergy Unknown Verified 05/27/18 14:35 - Worker's Comp Is this a Worker's Comp case?: No [facility] History - Hepatitis A Screen Attestation statement:: This patient has been screened for Hepatitis A risk factors. I have reviewed the patient's past medical history: Yes Other Surgeries: Yes: No Previous Surgery Amputation: No Fractures: No Comment: Oral Surgery - Social History Smoking Status: Current every day smoker Tobacco Type: cigarettes # Packs/Day (cigarettes): 1 Alcohol Intake: never Alcohol Intake Frequency:: other Substance Use Type: denies use Occupational Status: other Family Hx:: No significant family history ROS Obtained: Yes Systems reviewed as appropriate & no additional complaints - Constitutional Constitutional: Reports system reviewed and no additional complaints, except as docu, Denies fever(s) - Eyes Eyes: Reports system reviewed and no additional complaints, except as docu, Denies blurry vision - ENT Ears, Nose, Mouth, and Throat: Reports system reviewed and no additional complaints, except as docu, Reports as per HPI - Cardiovascular Cardiovascular: Reports system reviewed and no additional complaints, except as docu, Denies chest pain - Respiratory Respiratory: Reports system reviewed and no additional complaints, except as docu, Denies cough - Gastrointestinal Gastrointestingal: Reports: system reviewed
[2022-03-10 18:35] VITALS: BP 102/71; PULSE 76; RESP 17; TEMP 36.8; O2SAT 98
== END 2022-03-10 18:39 | disposition home or self-care (01) ==
PROVIDERS: Emergency Provider Nurse Practitioner Family
DX: H73.92 Unspecified disorder of tympanic membrane, left ear (principal); H91.92 Unspecified hearing loss, left ear
CPT/HCPCS: 99212; G0463

== ENCOUNTER 2022-03-25 16:39 | Emergency (ER) | payer MEDICAID, SELFPAY ==
[2022-03-25 17:10] VITALS: BP 108/76; PULSE 67; RESP 17; TEMP 36.7; O2SAT 99; BMI 15.6
--- NOTE | 2022-03-25 17:23 | HMH.EDUTC ---
[facility] [place] Clinical Impression: Low back pain Qualifiers: Chronicity: acute Back pain laterality: midline Sciatica presence: without sciatica Qualified Code(s): M54.50 - Low back pain, unspecified Tympanic membrane disorder Qualifiers: Laterality: left Qualified Code(s): H73.92 - Unspecified disorder of tympanic membrane, left ear Disposition: Home, Self-Care Condition on Discharge: Good Instructions: DI for Low Back Pain Additional Instructions: Weightbearing as tolerated rest Ice with cold pack for 20 minutes remove may repeat for comfort every hour Ibuprofen every 6 hours as needed for pain or inflammation. If needs something more you can take Tylenol every 4 hours as needed as long as her primary care has told he was okayed for you to take both. If improving any do not need to follow-up you can bring begin exercising 2-3 weeks after injury. Follow-up immediately if new or worsening symptoms or no noticeable improvement over the next 3-5 days. follow up with pcp Prescriptions: predniSONE [Prednisone 20mg Tab] 20 mg PO BID #10 tab Prescription Printed Referrals: Provider,Referral, MD [Primary Care Provider] - Time of Disposition: 17:27 Medical Decision Making - Teddy Inquiry Pt receiving controlled substance: No Vital Signs: 03/25/22 17:10 Temperature 98.0 F Temperature Source Oral Pulse Rate [Right Brachial] 67 Respiratory Rate 17 Blood Pressure [Right Arm] 108/76 L Blood Pressure Mean [Right Arm] 86 Blood Pressure Source [Right Arm] Automatic Cuff Blood Pressure Position [Right Arm] Sitting 02 Sat by Pulse Oximetry 99 Oxygen Delivery Method Room Air [facility] [place] HPI - General Chief complaint: Urgent Treatment Center Stated complaint: back pain, left ear pain Time Seen by Provider: 03/25/22 17:23 Mode of Arrival: Ambulatory Source of Information: Patient Limitations: No Limitations Description of Symptoms (Recalled from Triage Doc. by RN): PATIENT C/O LEFT EAR PAIN X 2 WEEKS AND BACK PAIN X 1 WEEK HEENT Symptoms (Recalled from RN notes): Yes Resp Symptoms (Recalled from RN notes): No Skin Symptoms (Recalled from RN notes): No MS Symptoms (Recalled from RN notes): Yes Functional Status (Recalled from RN notes): WNL - History of Present Illness Provider Complaint: 31 yr old male presents for left ear pain for 2 weeks and low back pain for 2 days. pt states he has been lifting some heavy objects. - Related Data Previous Rx's Medication Instructions Recorded Mupirocin Calcium [Mupirocin 2% 1 applicatio TP TID #1 tube 05/02/21 Cream 15gm] Sulfamethoxazole/Trimethoprim 1 each PO BID 10 Days #20 tab 05/02/21 [Bactrim DS tablet] Fluticasone Propionate [Flonase 1 spr NS DAILY 14 Days #9.9 ml 03/10/22 50mcg nasal spray 16gm] Loratadine [Claritin 10mg 10 mg PO DAILY #30 tab 03/10/22 Tablet] predniSONE [Prednisone 20mg 20 mg PO BID #10 tab 03/25/22 Tab] Allergies Allergy/AdvReac Type Severity Reaction Status Date / Time codeine [CODEINE] Allergy Mild Verified 05/27/18 14:35 Penicillins [PENICILLINS] Allergy Unknown Verified 05/27/18 14:35 - Worker's Comp Is this a Worker's Comp case?: No [facility] History - Hepatitis A Screen Attestation statement:: This patient has been screened for Hepatitis A risk factors. I have reviewed the patient's past medical history: Yes Other Surgeries: Yes: No Previous Surgery Amputation: No Fractures: No Comment: Oral Surgery - Social History Smoking Status: Current every day smoker Tobacco Type: cigarettes # Packs/Day (cigarettes): 1 Alcohol Intake: never Alcohol Intake Frequency:: other Substance Use Type: denies use Occupational Status: other Family Hx:: No significant family history ROS Obtained: Yes Systems reviewed as appropriate & no additional complaints - Constitutional Constitutional: Reports system reviewed and no additional complaints, except as docu, Denies fever(s) - Eyes Eyes: Reports system revie
[2022-03-25 17:25] VITALS: BP 108/76; PULSE 67; RESP 17; TEMP 36.7; O2SAT 99
== END 2022-03-25 17:29 | disposition home or self-care (01) ==
PROVIDERS: Emergency Provider Nurse Practitioner Family
DX: M54.50 Low back pain, unspecified (principal); H73.92 Unspecified disorder of tympanic membrane, left ear
CPT/HCPCS: 99212; G0463

== ENCOUNTER 2022-06-01 17:47 | Emergency (ER) | payer MEDICAID, SELFPAY ==
[2022-06-01 18:26] VITALS: BP 131/86; PULSE 76; RESP 17; TEMP 36.7; O2SAT 98; BMI 15.2
--- NOTE | 2022-06-01 18:31 | EXP.UTC ---
Discharge Plan Disposition Patient Disposition: Home, Self-Care Condition: Good Prescriptions Prescriptions: No Action fluticasone propionate 120 SPR/BOT bottle 1 spr NS DAILY 14 Days Qty: 9.9 0RF loratadine 10 MG tablet 10 mg PO DAILY Qty: 30 0RF prednisone 20 MG tablet 20 mg PO BID Qty: 10 0RF sulfamethoxazole-trimethoprim 1 EACH tablet 1 each PO BID 10 Days Qty: 20 0RF mupirocin calcium 15 GM cream 1 applicatio TP TID Qty: 1 0RF Rx Instructions: apply to area as directed Referrals Follow up/Referrals: Provider,Referral, MD [Primary Care Provider] - See instructions Activity Restrictions/Add. Instructions Additional Instructions/Restrictions: *Monitor Temp, Over the counter Motrin or Tylenol as directed/as needed Tylenol every 4 hours and Motrin every 6 hours (as long as your family doctor has told you that you can take it) for fever or pain. and straight to ER if unable to lower temp less than 101.0 after medication given *Warm salt water gargles may help to soothe the throat *Throat Lozenges? *Warm fluids like tea with honey may help to soothe the throat? *Sleep elevated *Humidifier/Vaporizer *Bromfed may cause drowsiness. Know how it effects you (your child) before driving, caring for small child, or sending your child to school. Not other antihistamines/allergy medications while taking bromfed Follow up IMMEDIATELY for new or worsening symptoms or no Noticeable improvement over the next 48-72 hours. 911 for difficulty breathing or swallowing You were tested for today for COVID19 your test result should be back in the next 24-48 hours, you may check your results on the [facility] My Health Portal Make sure to take your Vitamins Vit. C Vit D and Zinc if you can take them Clinical Impressions Clinical Impression: Encounter for laboratory testing for COVID-19 virus Stand Alone Forms Stand Alone Forms: Work/School Release Instructions Patient Instructions: Coronavirus Disease 2019, Preventing the Spread of Coronavirus Discharge Instructions Discharge ED Provider: Christel Cortez [facility] [place] General Stated complaint: covid test Mode of Arrival: Ambulatory Source of Information: Patient Limitations: No Limitations Time Seen by Provider: 06/01/22 18:31 Description of Symptoms (Recalled from Triage Doc. by RN): C/O cough and bodyaches x2 days. Requesting COVID test. HEENT Symptoms (Recalled from RN notes): No Resp Symptoms (Recalled from RN notes): Yes (Cough) Skin Symptoms (Recalled from RN notes): No MS Symptoms (Recalled from RN notes): No Functional Status (Recalled from RN notes): n/a History of Present Illness Provider Complaint: Patient states that he has been having cough and body aches for a couple days States that he was around someone at work that was coughing and not feeling well States that now he has been coughing and having body aches and chills so he wanted to get tested for COVID Related Data Previous Rx's Medication Instructions Recorded mupirocin calcium 2 % topical cream 1 applicatio TP TID #1 tube 05/02/21 sulfamethoxazole 800 1 each PO BID 10 days #20 tabs 05/02/21 mg-trimethoprim 160 mg tablet fluticasone propionate 50 1 spr intranasal DAILY 14 days 03/10/22 mcg/actuation nasal #9.9 mL spray,suspension loratadine 10 mg tablet 10 mg PO DAILY #30 tabs 03/10/22 prednisone 20 mg tablet 20 mg PO BID #10 tabs 03/25/22 Allergies Allergy/AdvReac Type Severity Reaction Status Date / Time codeine [CODEINE] Allergy Mild Verified 05/27/18 14:35 Penicillins [PENICILLINS] Allergy Unknown Verified 05/27/18 14:35 Worker's Comp Is this a Worker's Comp case?: No PFSH PFSH Social History Smoking Status: Current every day smoker tobacco type: cigarettes packs per day: 1 alcohol intake: never substance use type: denies use current occupational status: other Travel in the last 8 weeks: None ROS Obtained: Yes All systems
[2022-06-01 18:45] VITALS: BP 131/86; PULSE 76; RESP 17; TEMP 36.7; O2SAT 98
== END 2022-06-01 18:45 | disposition home or self-care (01) ==
PROVIDERS: Emergency Provider Nurse Practitioner
DX: Z20.822 Contact with and (suspected) exposure to COVID-19 (principal); F17.210 Nicotine dependence, cigarettes, uncomplicated
CPT/HCPCS: 99212; C9803; G0463; U0003; U0005

== ENCOUNTER 2022-08-01 10:54 | Emergency (ER) | payer MEDICAID, SELFPAY ==
[2022-08-01 10:57] VITALS: BP 168/92; PULSE 84; RESP 18; TEMP 36.6; O2SAT 99; BMI 17.3
--- NOTE | 2022-08-01 11:03 | XR_ITS ---
FINAL REPORT CLINICAL HISTORY: STEPPED ON NAIL, pain in top of foot COMPARISON: 05/01/2018 FINDINGS: RIGHT FOOT Three views of the right foot demonstrate no acute fracture or dislocation. The joint spaces are preserved. The soft tissues are unremarkable. IMPRESSION: No acute bony abnormality. Reviewed, Interpreted and Dictated by Quentin Briones MD Transcribed by Lisbeth Wahl Authenticated and [facility]
--- NOTE | 2022-08-01 11:19 | PC.NURSE ---
DR. DELACRUZ AT BEDSIDE
--- NOTE | 2022-08-01 11:29 | HMH.EDGENADL ---
Discharge Plan Disposition Patient Disposition: Home, Self-Care Condition: Good Prescriptions Prescriptions: New clindamycin HCl 300 mg capsule 300 mg PO QID Qty: 40 0RF ciprofloxacin HCl [Cipro] 500 mg tablet 500 mg PO BID Qty: 20 0RF No Action fluticasone propionate 120 SPR/BOT bottle 1 spr NS DAILY 14 Days Qty: 9.9 0RF loratadine 10 MG tablet 10 mg PO DAILY Qty: 30 0RF prednisone 20 MG tablet 20 mg PO BID Qty: 10 0RF sulfamethoxazole-trimethoprim 1 EACH tablet 1 each PO BID 10 Days Qty: 20 0RF mupirocin calcium 15 GM cream 1 applicatio TP TID Qty: 1 0RF Rx Instructions: apply to area as directed Referrals Follow up/Referrals: Provider,Referral, [Primary Care Provider] - See instructions Maria E Gil DPM [Staff Physician] - See instructions Activity Restrictions/Add. Instructions Additional Instructions/Restrictions: Take antibiotics as prescribed. Elevate foot. Follow-up with podiatry, Dr. Gil, as soon as possible. Return emergency department if increasing pain, increasing redness, increasing swelling, red streaks, or fever. Clinical Impressions Clinical Impression: Puncture wound of foot Instructions Patient Instructions: DI for Puncture Wound Discharge ED Provider: Ruel Renner [facility] HPI General Chief complaint: Wound/Laceration Stated complaint: AO 07/31@work@1300pain in Lt foot, stepped on nail Time Seen by Provider: 08/01/22 11:16 Mode of Arrival: Ambulatory Limitations: No Limitations Description of Symptoms (Recalled from ER Triage Doc. by RN): PT REPORTS STEPPING ON NAIL AT WORK YESTERDAY. PAIN AND REDNESS TO TOP OF RIGHT FOOT History of Present Illness HPI narrative: Patient states that he stepped on a nail with his right foot yesterday while at work. He was wearing a tennis shoe. He has a puncture wound on the plantar aspect of his foot and now also has a red spot on the dorsum of his foot. He is third toe is painful and it hurts to move it. No fever. Last tetanus immunization greater than 5 years ago. States that he has a previous history of a MRSA infection on his right foot. Related Data Previous Rx's Medication Instructions Recorded mupirocin calcium 2 % topical cream 1 applicatio TP TID #1 tube 05/02/21 sulfamethoxazole 800 1 each PO BID 10 days #20 tabs 05/02/21 mg-trimethoprim 160 mg tablet fluticasone propionate 50 1 spr intranasal DAILY 14 days 03/10/22 mcg/actuation nasal #9.9 mL spray,suspension loratadine 10 mg tablet 10 mg PO DAILY #30 tabs 03/10/22 prednisone 20 mg tablet 20 mg PO BID #10 tabs 03/25/22 ciprofloxacin HCl 500 mg tablet 500 mg PO BID #20 tabs 08/01/22 (Cipro) clindamycin HCl 300 mg capsule 300 mg PO QID #40 caps 08/01/22 Allergies Allergy/AdvReac Type Severity Reaction Status Date / Time codeine [CODEINE] Allergy Mild Verified 05/27/18 14:35 Penicillins [PENICILLINS] Allergy Unknown Verified 05/27/18 14:35 [facility] Medical History (Updated 08/01/22 @ 14:12 by Ruel Renner MD) No significant past medical history Family History (Updated 08/01/22 @ 11:31 by Emma Carbajal RN) Other No significant family history Social History (Updated 08/01/22 @ 11:31 by Emma Carbajal RN) Smoking Status: Current every day smoker tobacco type: cigarettes packs per day: 1 alcohol intake: never substance use type: denies use current occupational status: employed and other Travel in the last 8 weeks: None ROS Obtained: Yes Systems reviewed as appropriate & no additional complaints except as documented Constitutional Constitutional: Denies fever(s) Musculoskeletal Musculoskeletal: Reports as per HPI Physical Exam General General appearance: alert and in no apparent distress Head Head exam: atraumatic and normocephalic Neck Neck exam: Present normal inspection Chest Chest inspection: Present normal inspection and symmetric chest wall rise Respirator
--- NOTE | 2022-08-01 11:35 | PC.NURSE ---
ABX STARTED AT THIS TIME, PT V/U
[2022-08-01 11:50] LABS: Basophils # 0.1 K/mm3 (0-0.2); Basophils % 0.9 % (0.1-2.0); Eosinophils # 0.1 K/mm3 (0.0-0.4); Eosinophils % 0.8 % (0.1-12.0); Hematocrit 50.1 % (42.0-52.0); Hemoglobin 16.8 g/dL (14.1-18.0); Lymphocytes # 3.6 K/mm3 (0.7-4.5); Lymphocytes % 36.9 % (10-50); Mean Corpuscular HGB Conc 33.5 g/dL (31.8-35.4); Mean Corpuscular Hemoglobin 32.3 pg (27.0-31.2); Mean Corpuscular Volume 96.4 fl (80-94); Mean Platelet Volume 8.4 fl (7.4-10.4); Monocytes # 1.2 K/mm3 (0.1-1.0); Monocytes % 12.2 % (1.7-9.3); Neutrophils # 4.8 K/mm3 (1.8-7.8); Neutrophils % 49.3 % (37.0-80.0); Platelet Count 260 K/mm3 (142-424); White Blood Count 9.7 K/mm3 (4.8-10.8)
[2022-08-01 12:13] LABS: Anion Gap 14.4 mEq/L (5-15); Blood Urea Nitrogen 9 mg/dl (9-20); Calcium 10.2 mg/dl (8.4-10.2); Carbon Dioxide 31 mmol/L (22.0-30.0); Chloride 97 mmol/L (98-107); Creatinine Clearance Estimated 78 mL/min (50-200); Estimated Glomerular Filt Rate 100 ml/min (>60); GFR (African American) 121 ML/MIN (>60); Glucose 90 mg/dl (74-100); Potassium 4.4 mmoL/L (3.5-5.1); Sodium 138 mmol/L (136-145)
--- NOTE | 2022-08-01 12:28 | PC.NURSE ---
1228 VANC STARTED AT THIS TIME. PT RESTING WITH EYES CLOSED. AWAKENS EASILY. WARM BLANKET PROVIDED
[2022-08-01 12:30] VITALS: BP 132/76; PULSE 75; O2SAT 97
[2022-08-01 13:30] VITALS: BP 113/70; PULSE 69; O2SAT 99
--- NOTE | 2022-08-01 13:46 | PC.NURSE ---
ROUNDED ON PT AT THIS TIME. NO NEEDS VOICED. FAMILY AT BEDSIDE
[2022-08-01 14:00] VITALS: BP 114/70; PULSE 72; O2SAT 98
--- NOTE | 2022-08-01 14:09 | PC.NURSE ---
ROUNDED ON PT AT THIS TIME, ABX ALMOST COMPLETE, PT WITHOUT NEEDS AT THIS TIME
--- NOTE | 2022-08-01 14:16 | PC.NURSE ---
PT HAS AN APPOINTMENT WITH PODIATRY ON Saturday @3:30
[2022-08-01 14:31] VITALS: BP 124/83; PULSE 75
[2022-08-01 14:46] VITALS: BP 124/83; PULSE 75; RESP 18; TEMP 36.6; O2SAT 98
== END 2022-08-01 14:47 | disposition home or self-care (01) ==
PROVIDERS: Emergency Provider Emergency Medicine
DX: S91.332A Puncture wound without foreign body, left foot, initial encounter (principal); F17.210 Nicotine dependence, cigarettes, uncomplicated; Z79.899 Other long term (current) drug therapy; Z88.0 Allergy status to penicillin; Z88.8 Allergy status to other drugs, medicaments and biological substances; W45.0XXA Nail entering through skin, initial encounter
CPT/HCPCS: 73630; 80048; 85025; 90471; 90715; 96374; 96375; 99284; J0692; J3370

== ENCOUNTER 2022-09-11 12:37 | Emergency (ER) | payer MEDICAID, SELFPAY ==
[2022-09-11 12:50] VITALS: BP 165/101; PULSE 75; RESP 18; TEMP 36.7; O2SAT 97; BMI 22.3
--- NOTE | 2022-09-11 13:38 | PC.NURSE ---
DR. DELACRUZ AT BEDSIDE
--- NOTE | 2022-09-11 13:42 | HMH.EDGENADL ---
Discharge Plan Disposition Patient Disposition: Home, Self-Care Condition: Good Prescriptions Prescriptions: New tobramycin [Tobrex] 0.3 % drops 1 drp ophthalmic (eye) Q4H Qty: 5 0RF No Action fluticasone propionate 120 SPR/BOT bottle 1 spr NS DAILY 14 Days Qty: 9.9 0RF loratadine 10 MG tablet 10 mg PO DAILY Qty: 30 0RF prednisone 20 MG tablet 20 mg PO BID Qty: 10 0RF clindamycin HCl 300 mg capsule 300 mg PO QID Qty: 40 0RF ciprofloxacin HCl [Cipro] 500 mg tablet 500 mg PO BID Qty: 20 0RF sulfamethoxazole-trimethoprim 1 EACH tablet 1 each PO BID 10 Days Qty: 20 0RF mupirocin calcium 15 GM cream 1 applicatio TP TID Qty: 1 0RF Rx Instructions: apply to area as directed Referrals Follow up/Referrals: Provider,Referral, MD [Primary Care Provider] - See instructions Activity Restrictions/Add. Instructions Additional Instructions/Restrictions: Use Tobrex eyedrops in right eye every 4 hours while awake. May begin using in left eye if he developed left eye symptoms as well. Additional instructions for EYE PAIN or INJURY: Follow up with an assessment rn as soon as possible. Return to the emergency department if severe pain, loss of vision, pus drainage, severe swelling or redness of eyelids. Dr. Cochran, Dr. Steward, Dr. Devyn Stap[facility] [address] [place] [address] Clinical Impressions Clinical Impression: Conjunctivitis Instructions Patient Instructions: DI for Conjunctivitis Discharge ED Provider: Ruel Renner [facility] Adult HPI General Chief complaint: Eye Problems Stated complaint: RT eye redness Time Seen by Provider: 09/11/22 13:35 Mode of Arrival: Ambulatory Source of Information: Patient Limitations: No Limitations Description of Symptoms (Recalled from ER Triage Doc. by RN): PT REPORTS WAING UP WITH RIGHT EYE RED AND STUCK SHUT THIS AM History of Present Illness HPI narrative: Patient reports right eye redness and discharge. States that he woke up with his right eyelid stuck together. Then noticed his right eye was red. Mild irritation of the eye, no severe pain. Denies visual loss. Denies exposure to conjunctivitis. Denies any injury. He has not used any power tools recently. He wears glasses, but not contacts. He thought he might have pinkeye. Related Data Previous Rx's Medication Instructions Recorded mupirocin calcium 2 % topical cream 1 applicatio TP TID #1 tube 05/02/21 sulfamethoxazole 800 1 each PO BID 10 days #20 tabs 05/02/21 mg-trimethoprim 160 mg tablet fluticasone propionate 50 1 spr intranasal DAILY 14 days 03/10/22 mcg/actuation nasal #9.9 mL spray,suspension loratadine 10 mg tablet 10 mg PO DAILY #30 tabs 03/10/22 prednisone 20 mg tablet 20 mg PO BID #10 tabs 03/25/22 ciprofloxacin HCl 500 mg tablet 500 mg PO BID #20 tabs 08/01/22 (Cipro) clindamycin HCl 300 mg capsule 300 mg PO QID #40 caps 08/01/22 tobramycin 0.3 % eye drops (Tobrex) 1 drp ophthalmic (eye) Q4H #5 mL 09/11/22 Allergies Allergy/AdvReac Type Severity Reaction Status Date / Time codeine [CODEINE] Allergy Mild Verified 05/27/18 14:35 Penicillins [PENICILLINS] Allergy Unknown Verified 05/27/18 14:35 [facility] Disclaimer: The information contained in this section may have been updated after the patient was seen, as this information can be updated by other users. Medical History (Updated 09/11/22 @ 13:48 by Ruel Renner MD) No significant past medical history Family History (Updated 08/01/22 @ 11:31 by Emma Carbajal RN) Other No significant family history Social History (Updated 08/01/22 @ 11:31 by Emma Carbajal RN) Smoking Status: Never smoker alcohol intake: never substance use type: denies use current occupational status: employed and other Travel in the last 8 weeks: None ROS Obtained: Yes Systems reviewed as appropriate & no additional complai
--- NOTE | 2022-09-11 13:43 | PC.NURSE ---
LEFT EYE 20/70 RIGHT EYE 20/70 BILATERAL EYES 20/70
[2022-09-11 13:48] VITALS: BP 133/94; PULSE 83; RESP 16; O2SAT 97
[2022-09-11 14:00] VITALS: BP 133/94; PULSE 69; RESP 17; TEMP 36.7; O2SAT 98
== END 2022-09-11 14:00 | disposition home or self-care (01) ==
PROVIDERS: Emergency Provider Emergency Medicine
DX: H10.9 Unspecified conjunctivitis (principal); Z79.51 Long term (current) use of inhaled steroids; Z79.52 Long term (current) use of systemic steroids; Z79.899 Other long term (current) drug therapy; Z88.0 Allergy status to penicillin; Z88.5 Allergy status to narcotic agent
CPT/HCPCS: 99283

== ENCOUNTER 2023-01-07 16:39 | Emergency (ER) | payer MEDICAID, SELFPAY ==
[2023-01-07 17:15] VITALS: BP 154/90; PULSE 67; RESP 20; TEMP 36.8; O2SAT 99; BMI 19.0
--- NOTE | 2023-01-07 18:04 | EXP.UTC ---
Discharge Plan Disposition Patient Disposition: Home, Self-Care Condition: Good Prescriptions Prescriptions: New cyclobenzaprine 10 mg tablet 10 mg PO TID PRN (Reason: muscle spasm) Qty: 15 0RF ibuprofen 600 mg tablet 600 mg PO Q6HP PRN (Reason: Moderate Pain) Qty: 20 0RF Referrals Follow up/Referrals: Provider,Referral, MD [Primary Care Provider] - See instructions Activity Restrictions/Add. Instructions Additional Instructions/Restrictions: *Ibuprofen chaim 6 hours with meal as needed for pain/inflammation *Not additional anti-inflammatory like motrin, aleve, advil with the above amount of ibuprofen. You can still take Tylenol every 4 hours as needed if you need something else for pain *Ice 20 minutes every 2 hours for the first 48 hours after the initial injury followed by moist heat every 20 minutes 3-4 times a day to affected area *Muscle relaxer every 8 hours as needed for muscle spasms but remember, it WILL cause drowsiness You cannot take it and Work, drive, operate machinery or care for small children. *Keep this area active, no movement leads to more stiffness, However take it easy and avoid heavy lifting pushing or pulling *Follow up with you family doctor if no improvement for further treatment Clinical Impressions Clinical Impression: Low back pain Instructions Patient Instructions: DI for Low Back Pain, Low Back Pain Discharge ED Provider: Christel Cortez [facility] General Stated complaint: Lower back pain Mode of Arrival: Ambulatory Source of Information: Patient Limitations: No Limitations Time Seen by Provider: 01/07/23 18:04 Description of Symptoms (Recalled from Triage Doc. by RN): pain in back. He had been lifting heavy things. He has been taking a muscle relaxer is not working. The pain is in the lower back. HEENT Symptoms (Recalled from RN notes): No Resp Symptoms (Recalled from RN notes): No Skin Symptoms (Recalled from RN notes): No MS Symptoms (Recalled from RN notes): Yes Functional Status (Recalled from RN notes): n/a History of Present Illness Provider Complaint: Patient states that he does alot of heavy lifting at work States he thinks he may have pulled something in his lower back States that at times he feels like he is having spasms and it hurts when he moves certain ways States that he had some type of muscle relaxer from a few years back and took but they didnt help not sure if they may have been old States that he hasnt falling or anything and feels like spasms Related Data Previous Rx's Medication Instructions Recorded cyclobenzaprine 10 mg tablet 10 mg PO TID PRN muscle spasm #15 01/07/23 tabs ibuprofen 600 mg tablet 600 mg PO Q6HP PRN Moderate Pain 01/07/23 #20 tabs Allergies Allergy/AdvReac Type Severity Reaction Status Date / Time codeine [CODEINE] Allergy Mild Verified 01/07/23 17:42 Penicillins [PENICILLINS] Allergy Unknown Verified 01/07/23 17:42 Worker's Comp Is this a Worker's Comp case?: No [facility] Disclaimer: The information contained in this section may have been updated after the patient was seen, as this information can be updated by other users. Medical History (Updated 01/07/23 @ 18:12 by Christel Cortez APRN) No significant past medical history Family History Other No significant family history Social History Smoking Status: Never smoker alcohol intake: never substance use type: denies use current occupational status: employed and other Travel in the last 8 weeks: None ROS Obtained: Yes All systems reviewed & no additional complaints except as documented and Yes Systems reviewed as appropriate & no additional complaints except as documented Constitutional Constitutional: Reports system reviewed and no additional complaints, except as documented, Reports as per HPI, Denies fever(s) and Denies headache(s) ENT Ears
[2023-01-07 18:19] VITALS: BP 154/90; PULSE 67; RESP 18; TEMP 36.8; O2SAT 99
== END 2023-01-07 18:17 | disposition home or self-care (01) ==
PROVIDERS: Emergency Provider Nurse Practitioner
DX: M54.50 Low back pain, unspecified (principal); M62.830 Muscle spasm of back; X50.0XXA Overexertion from strenuous movement or load, initial encounter
CPT/HCPCS: 99212; 99214; G0463

== ENCOUNTER 2023-02-02 11:05 | Emergency (ER) | payer MEDICAID, SELFPAY ==
--- NOTE | 2023-02-02 11:22 | EXP.UTC ---
Discharge Plan Disposition Patient Disposition: Home, Self-Care Condition: Good Prescriptions Prescriptions: New ibuprofen 600 mg tablet 600 mg PO TID PRN (Reason: pain) Qty: 30 0RF cyclobenzaprine 10 mg tablet 10 mg PO TID PRN (Reason: muscle spasm) Qty: 15 0RF Referrals Follow up/Referrals: Provider,Referral, [Primary Care Provider] - See instructions Activity Restrictions/Add. Instructions Additional Instructions/Restrictions: Need to establish with a primary care provider. 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 He reports that from time to time his lower back will hurt. He reports that his back is hurting again and he can't rest at night due to the pain. He states that he does not have a PCP. He has taken Ibuprofen for his symptoms. Related Data Previous Rx's Medication Instructions Recorded cyclobenzaprine 10 mg tablet 10 mg PO TID PRN muscle spasm #15 02/02/23 tabs ibuprofen 600 mg tablet 600 mg PO TID PRN pain #30 tabs 02/02/23 Allergies Allergy/AdvReac Type Severity Reaction Status Date / Time codeine [CODEINE] Allergy Mild Verified 02/02/23 11:32 Penicillins [PENICILLINS] Allergy Unknown Verified 02/02/23 11:32 [facility] Disclaimer: The information contained in this section may have been updated after the patient was seen, as this information can be updated by other users. Medical History (Updated 02/02/23 @ 11:35 by Damaris Huddleston APRN) No significant past medical history Family History Other No significant family history Social History Smoking Status: Never smoker alcohol intake: never substance use type: denies use current occupational status: employed and other Travel in the last 8 weeks: None ROS Obtained: Yes All systems reviewed & no additional complaints except as documented Constitutional Constitutional: Reports system reviewed and no additional complaints, except as documented Eyes Eyes: Reports system reviewed and no additional complaints, except as documented ENT Ears, Nose, Mouth, and Throat: Reports system reviewed and no additional complaints, except as documented Cardiovascular Cardiovascular: Reports system reviewed and no additional complaints, except as documented Respiratory Respiratory: Reports system reviewed and no additional complaints, except as documented Gastrointestinal Gastrointestingal: Reports system reviewed and no additional complaints, except as documented Genitourinary Male Genitourinary: Reports system reviewed and no additional complaints, except as documented Musculoskeletal Musculoskeletal: Reports system reviewed and no additional complaints, except as documented, Reports as per HPI and Reports back pain Integumentary/Breasts Skin/Breast: Reports system reviewed and no additional complaints, except as documented Neurologic Neurologic: Reports system reviewed and no additional complaints, except as documented Endocrine Endocrine: Reports system reviewed and no additional complaints, except as documented Hematologic/Lymphatic Henatologic/Lymphatic: Reports system reviewed and no additional complaints, except as documented Allergic/Immunologic Allergic/Immunologic: Reports system reviewed and no additional complaints, except as documented Physical Exam General General appearance: alert and in no apparent distress Head Head exam: atraumatic and normocephalic Eye Eye exam: Present normal appearance ENT ENT exam: Present normal
[2023-02-02 11:25] VITALS: BP 142/95; PULSE 85; RESP 18; TEMP 36.7; O2SAT 98; BMI 18.6
[2023-02-02 11:40] VITALS: BP 140/90; PULSE 82; RESP 18; TEMP 36.7; O2SAT 98
== END 2023-02-02 11:40 | disposition home or self-care (01) ==
PROVIDERS: Emergency Provider Nurse Practitioner Family
DX: M54.50 Low back pain, unspecified (principal); X50.9XXA Other and unspecified overexertion or strenuous movements or postures, initial encounter
CPT/HCPCS: 99212; 99214; G0463

== ENCOUNTER 2023-04-16 14:44 | Emergency (ER) | payer MEDICAID, SELFPAY ==
[2023-04-16 14:44] VITALS: BP 119/75; PULSE 63; RESP 18; TEMP 36.7; O2SAT 100; BMI 18.6
--- NOTE | 2023-04-16 15:34 | EXP.UTC ---
Discharge Plan Disposition Patient Disposition: Home, Self-Care Condition: Good Prescriptions Prescriptions: New mupirocin 2 % ointment 1 applic topical TID 10 Days Qty: 22 0RF Rx Instructions: apply to sores as directed No Action lidocaine 5 % adhesive patch,medicated 1 patch topical DAILY Qty: 30 0RF Rx Instructions: leave on most painful area for up to 12 hrs diclofenac sodium 1 % gel 2 g topical QID Qty: 100 0RF Rx Instructions: apply to single elbow, wrist or hand; for hand includes palm/fingers/back of hand tramadol 50 mg tablet 50 mg PO BID Qty: 60 2RF prednisone 20 mg tablet See Rx Instructions .Route .COMPLEX Qty: 10 0RF Rx Instructions: Take 1 tablet twice daily for 5 days ibuprofen 600 mg tablet 600 mg PO TID PRN (Reason: pain) Qty: 30 0RF cyclobenzaprine 10 mg tablet 10 mg PO TID PRN (Reason: muscle spasm) Qty: 15 0RF Referrals Follow up/Referrals: Cody Guerra MD [Primary Care Provider] - See instructions Activity Restrictions/Add. Instructions Additional Instructions/Restrictions: Use topical ointment as prescribed DO NOT SCRATCH Follow up with your Family Doctor if no improvement or any worsening of symptoms Return if needed Straight to ER if any life threatening symptoms Oatmeal bathes may help with itching Clinical Impressions Clinical Impression: Skin problem Instructions Patient Instructions: Mupirocin Discharge ED Provider: Christel Cortez [facility] HPI General Stated complaint: rash Mode of Arrival: Ambulatory Source of Information: Patient Limitations: No Limitations Time Seen by Provider: 04/16/23 15:34 Description of Symptoms (Recalled from Triage Doc. by RN): Patient states he thinks that he has boils on his butt for 1 week. HEENT Symptoms (Recalled from RN notes): No Resp Symptoms (Recalled from RN notes): No Skin Symptoms (Recalled from RN notes): Yes MS Symptoms (Recalled from RN notes): No Functional Status (Recalled from RN notes): wnl History of Present Illness Provider Complaint: Patient states that he has some sores on his butt for about a week that he has been picking at States that a couple popped last night and white stuff came out of them States that he is worried because some of them look a little red States that his mother thought they may have been infected bug bites but he is not sure Related Data Previous Rx's Medication Instructions Recorded cyclobenzaprine 10 mg tablet 10 mg PO TID PRN muscle spasm #15 02/02/23 tabs ibuprofen 600 mg tablet 600 mg PO TID PRN pain #30 tabs 02/02/23 prednisone 20 mg tablet See Rx Instructions .Route 02/26/23 .COMPLEX #10 tabs diclofenac sodium 1 % topical gel 2 g topical QID #100 grams 03/05/23 lidocaine 5 % topical patch 1 patch topical DAILY #30 ea 03/05/23 tramadol 50 mg tablet 50 mg PO BID pain #60 tabs 03/05/23 mupirocin 2 % topical ointment 1 applic topical TID 10 days #22 04/16/23 grams Allergies Allergy/AdvReac Type Severity Reaction Status Date / Time codeine [CODEINE] Allergy Mild Verified 03/05/23 16:19 Penicillins [PENICILLINS] Allergy Unknown Verified 03/05/23 16:19 Worker's Comp Is this a Worker's Comp case?: No [facility] Disclaimer: The information contained in this section may have been updated after the patient was seen, as this information can be updated by other users. Medical History No significant past medical history Family History Other Asthma Cancer Social History Smoking Status: Current every day smoker tobacco type: cigarettes packs per day: 1 alcohol intake: never substance use type: denies use current occupational status: unemployed Travel in the last 8 weeks: None ROS Obtained: Yes All systems reviewed & no additional complaints
[2023-04-16 15:48] VITALS: BP 119/75; PULSE 63; RESP 18; TEMP 36.7; O2SAT 100
== END 2023-04-16 15:48 | disposition home or self-care (01) ==
PROVIDERS: Emergency Provider Nurse Practitioner; PCP Emergency Medicine
DX: L98.9 Disorder of the skin and subcutaneous tissue, unspecified (principal); F17.210 Nicotine dependence, cigarettes, uncomplicated
CPT/HCPCS: 99212; 99213; G0463

== ENCOUNTER → 2023-05-08 12:00 | Outpatient (CLI) | payer MEDICAID, SELFPAY | PROVIDERS: PCP Nurse Practitioner Family; Visit Provider Nurse Practitioner Family | DX: J02.9 Acute pharyngitis, unspecified (principal) | CPT/HCPCS: 87070 ==

== ENCOUNTER 2023-08-27 13:41 | Emergency (ER) | payer MEDICAID, SELFPAY ==
[2023-08-27 13:43] VITALS: BP 134/84; PULSE 84; RESP 20; TEMP 36.7; O2SAT 100; BMI 19.2
--- NOTE | 2023-08-27 14:04 | HMH.EDGENADL ---
Discharge Plan Disposition Patient Disposition: Home, Self-Care Condition: Good Prescriptions Prescriptions: New hydrocortisone [Preparation H Hydrocortisone] 1 % cream 1 applic topical TID PRN (Reason: rash) 14 Days Qty: 453.6 0RF No Action lidocaine 5 % adhesive patch,medicated 1 patch topical DAILY Qty: 30 0RF Rx Instructions: leave on most painful area for up to 12 hrs diclofenac sodium 1 % gel 2 g topical QID Qty: 100 0RF Rx Instructions: apply to single elbow, wrist or hand; for hand includes palm/fingers/back of hand tramadol 50 mg tablet 50 mg PO BID Qty: 60 2RF ibuprofen 600 mg tablet 600 mg PO TID PRN (Reason: pain) Qty: 30 0RF cyclobenzaprine 10 mg tablet 10 mg PO TID PRN (Reason: muscle spasm) Qty: 15 0RF Referrals Follow up/Referrals: Rg Martínez MD [Staff Physician] - See instructions Bradley Zhao DO [Primary Care Provider] - See instructions Clinical Impressions Clinical Impression: Hemorrhoid Instructions Patient Instructions: DI for Groin Hernia, DI for Hemorrhoids Discharge ED Provider: Paula Mccormick General Adult HPI General Chief complaint: Skin/Abscess/Foreign Body Stated complaint: male pain Time Seen by Provider: 08/27/23 13:58 Mode of Arrival: Ambulatory Source of Information: Patient Limitations: No Limitations Description of Symptoms (Recalled from ER Triage Doc. by RN): pt states there is something stiking out of my butt . pt states he noticed it and right groi pain after heavy lifting. pt states no trauma or foreign bodies to the area and just states it hurts when he coughs and it dont feel and look right History of Present Illness HPI narrative: Otherwise healthy 32-year-old male who presents to the ED with complaints of rectal pain. Pt states there is something sticking out of my butt . Pt states he noticed it this morning when he was having a bowel movement. Patient notes over the weekend he had to do alot of heavy lifting. Patient notes a history of constipation as well. Along with the rectal pain, patient notes that he has been having intermittent R testicular pain, but denies any nausea, vomiting, difficulty stooling or passing gas, abdominal pain. Pt states no trauma or foreign bodies to the area and just states it hurts when he coughs. Related Data Previous Rx's Medication Instructions Recorded cyclobenzaprine 10 mg tablet 10 mg PO TID PRN muscle spasm #15 02/02/23 tabs ibuprofen 600 mg tablet 600 mg PO TID PRN pain #30 tabs 02/02/23 diclofenac sodium 1 % topical gel 2 g topical QID #100 grams 03/05/23 lidocaine 5 % topical patch 1 patch topical DAILY #30 ea 03/05/23 tramadol 50 mg tablet 50 mg PO BID pain #60 tabs 03/05/23 hydrocortisone 1 % topical cream 1 applic topical TID PRN rash 14 08/27/23 (Preparation H Hydrocortisone) days #453.6 grams Allergies Allergy/AdvReac Type Severity Reaction Status Date / Time codeine [CODEINE] Allergy Mild Verified 05/08/23 10:56 Penicillins [PENICILLINS] Allergy Unknown Verified 05/08/23 10:56 [facility] Disclaimer: The information contained in this section may have been updated after the patient was seen, as this information can be updated by other users. Medical History (Updated 08/27/23 @ 14:10 by Paula Mccormick MD) Abscess Callous ulcer, limited to breakdown of skin Cellulitis Conjunctivitis Encounter for laboratory testing for COVID-19 virus Finger injury Impacted cerumen of left ear Low back pain Lumbar back sprain No significant past medical history Otitis externa Patient left without being seen Poisoning by opiate or related narcotic Puncture wound of foot Skin problem Family History Other Asthma Cancer Social History Smoking Status: Current every day smoker tobacco type: cigarettes packs per day: 1 alcohol intake: never sub
[2023-08-27 14:16] VITALS: BP 130/78; PULSE 70; RESP 16; TEMP 36.7; O2SAT 97
== END 2023-08-27 14:16 | disposition home or self-care (01) ==
PROVIDERS: Emergency Provider Emergency Medicine; PCP Internal Medicine
DX: K64.4 Residual hemorrhoidal skin tags (principal); N50.89 Other specified disorders of the male genital organs; F17.210 Nicotine dependence, cigarettes, uncomplicated
CPT/HCPCS: 99283

== ENCOUNTER → 2023-09-13 07:32 | Outpatient (CLI) | payer MEDICAID, SELFPAY ==
--- NOTE | 2023-09-13 07:33 | CT_ITS ---
FINAL REPORT TECHNIQUE: After the administration of oral and intravenous contrast, axial images were obtained through the abdomen and pelvis by computed tomography. The study was performed with techniques to keep radiation dose as low as reasonably achievable, (ALARA). Individual dose reduction techniques using automated exposure control or adjustment of mA and/or kV according to the patient's size were employed. CLINICAL HISTORY: lower quad pain FINDINGS: Abdomen: The lung bases are clear. The liver parenchyma is homogeneous. The gallbladder is present. The spleen, pancreas, adrenals and kidneys appear unremarkable. The aorta is normal in caliber. There is no free fluid or adenopathy. Pelvis: The appendix is unremarkable. The urinary bladder is incompletely distended. There are calcified phleboliths in the floor of the pelvis. There is no free fluid or adenopathy. IMPRESSION: No acute intra-abdominal process. Reviewed, Interpreted and Dictated by Quentin Briones MD Transcribed by Asha Harris Authenticated and [facility]
[2023-09-13] MEDS: SODIUM CHLORIDE 0.9% 10ML SYR (RAD ONLY) 10 ML IV (08:15)
[2023-09-13] MEDS: BARIUM SULFATE(READI-CAT2);450ML BOTTLE 450 ML PO (08:15)
[2023-09-13] MEDS: IOPAMIDOL-370 (76%);100ML BOTTLE 75 ML IV (08:15)
== END ==
LOC: RAD 07:32
PROVIDERS: PCP Internal Medicine; Visit Provider Surgery
DX: R10.32 Left lower quadrant pain (principal)
CPT/HCPCS: 74177; Q9967

== ENCOUNTER 2023-09-26 14:08 | Emergency (ER) | payer MEDICAID, SELFPAY ==
[2023-09-26 14:09] VITALS: BP 150/99; PULSE 82; RESP 18; TEMP 36.6; O2SAT 97
--- NOTE | 2023-09-26 14:40 | US_ITS ---
FINAL REPORT TECHNIQUE: Ultrasound images of the testicles were obtained bilaterally. Color Doppler images were obtained. CLINICAL HISTORY: right testicle pain COMPARISON: None FINDINGS: Right testicle measures 3.6 cm with normal blood flow. The left testicle measures 2.6 cm with normal blood flow. There is a small left hydrocele. There is a 3 mm cyst in the right epididymal head. IMPRESSION: Small left hydrocele. 3 mm cyst right epididymal head. Reviewed, Interpreted and Dictated by Rg Vidal III, MD Transcribed by Kori Wynn Authenticated and [facility]
--- NOTE | 2023-09-26 14:40 | ED_ITS ---
Discharge Plan Disposition Patient Disposition: Home, Self-Care Prescriptions Prescriptions: No Action No Known Home Medications Referrals Follow up/Referrals: Provider,MD Marco [Primary Care Provider] - See instructions Activity Restrictions/Add. Instructions Additional Instructions/Restrictions: Call your family doctor to establish care for this visit to the emergency department and schedule follow-up within 48 hours to ensure improvement. If you have any worsening of your condition or any other concerning signs or symptoms, return to the emergency department or your primary care doctor for further evaluation. Also return to the emergency department if hernia pops out and get stuck and you are unable to reduce it. Clinical Impressions Clinical Impression: Testicular pain, right Discharge ED Provider: Jamil Bowie General Adult HPI <Maia Mathews MD - Last Filed: 09/26/23 14:42> General Chief complaint: PAIN Stated complaint: pain in groin area Time Seen by Provider: 09/26/23 14:35 Mode of Arrival: Ambulatory Source of Information: Patient Limitations: No Limitations Description of Symptoms (Recalled from ER Triage Doc. by RN): pain under/behind scrotum no pain last 3 days but today extreme pain 10/10 History of Present Illness HPI narrative: Is a 32-year-old male presents today with right testicle pain has been ongoing for several weeks. States that he went and was evaluated by Dr. Martínez because he told Dr. Martínez he thought that it was his groin that was hurting and had a CT scan which was unremarkable but since he is realized this is in his right testicle. Denies any lesions states it is little more red and tender than normal. Denies any pus coming from his penis. He is in a monogamous relationship for the past 5 years and denies any history of gonorrhea chlamydia etc. No recent viral infections. Related Data Home Medications Medication Instructions Recorded Confirmed No Known Home Medications 09/17/23 09/17/23 Allergies Allergy/AdvReac Type Severity Reaction Status Date / Time codeine [CODEINE] Allergy Mild Verified 09/17/23 09:01 Penicillins [PENICILLINS] Allergy Unknown Verified 09/17/23 09:01 [facility] <Maia Mathews MD - Last Filed: 09/26/23 14:42> [facility] Disclaimer: The information contained in this section may have been updated after the patient was seen, as this information can be updated by other users. Medical History Abscess Callous ulcer, limited to breakdown of skin Cellulitis Conjunctivitis Encounter for laboratory testing for COVID-19 virus Finger injury Impacted cerumen of left ear Low back pain Lumbar back sprain No significant past medical history Otitis externa Patient left without being seen Poisoning by opiate or related narcotic Puncture wound of foot Skin problem Family History Other Asthma Cancer Social History Smoking Status: Current every day smoker tobacco type: cigarettes packs per day: 1 alcohol intake: never substance use type: denies use current occupational status: unemployed Travel in the last 8 weeks: None <Maia Mathews MD - Last Filed: 09/26/23 14:42> ROS Obtained: Yes All systems reviewed & no additional complaints except as documented Physical Exam <Maia Mathews MD - Last Filed: 09/26/23 14:42> General General appearance: alert Respiratory Respiratory exam: Present normal lung sounds bilaterally Cardiovascular Cardiovascular exam: Present regular rate exam: Present other (Right testicle is tender to palpation erythematous not significantly swollen there is a normal cremasteric reflex there is no bulge or hernia noted) Neurological Exam Neurological exam: Present alert Medical Decision Making <Maia Mathews MD - Last Filed: 09/26/23 14:42> Teddy Inquiry Pt receiving controlled substance: No Vital Signs: 09/26/23 14:09 09/26/23 15:30 09/26/23 16:01 Temperature 97.9 F Temperature Source Oral Pulse Rate 81 72 Pulse Rate [Right] 82 Respiratory Rate 18 Blood Pressure 141/82 H 129/112 H Blood Pressure [Right Arm] 150/99 H Blood Pressure Mean [Right Arm] 116 Blood Pressure Source [Right Arm] Automatic Cuff Blood Pressure Position [Right Arm] Sitting 02 Sat by Pulse Oximetry 97 96 96 Oxygen Delivery Method Room Air Room Air Lab Data Lab Results 09/26/23 14:15: Urine Color Yellow, Urine Appearance Clear, Urine pH 6.0, Ur Specific [place] >= 1.030, Urine Protein Negative, Urine Glucose (UA) Negative, Urine Ketones Trace, Urine Blood Negative, Urine Nitrate Negative, Urine Bilirubin 2+ A, Urine Urobilinogen 0.2, Ur Leukocyte Esterase Negative, Urine RBC Occasional, Urine WBC None, Ur Squamous Epith Cells Occasional, Urine Bacteria None Orders (Tests/Meds): ORDERS Category Date Time Status UA [Urinalysis and Microscopic] Stat Lab 09/26/23 14:15 Completed scrotum US [US Testicular] Stat Ultrasound 09/26/23 14:40 Completed Medical Decision Narrative: 32-year-old male presents today with above history differential includes orchitis epididymitis epididymal orchitis etc. Will get a scrotal ultrasound, urinalysis, gonorrhea and chlamydia amplification test from urine and reassess. Care will be transitioned to Dr. Jamil Bowie at 3 PM. <Jamil Bowie MD - Last Filed: 09/26/23 16:39> Vital Signs: 09/26/23 14:09 09/26/23 15:30 09/26/23 16:01 Temperature 97.9 F Temperature Source Oral Pulse Rate 81 72 Pulse Rate [Right] 82 Respiratory Rate 18 Blood Pressure 141/82 H 129/112 H Blood Pressure [Right Arm] 150/99 H Blood Pressure Mean [Right Arm] 116 Blood Pressure Source [Right Arm] Automatic Cuff Blood Pressure Position [Right Arm] Sitting 02 Sat by Pulse Oximetry 97 96 96 Oxygen Delivery Method Room Air Room Air Lab Data Lab Results 09/26/23 14:15: Urine Color Yellow, Urine Appearance Clear, Urine pH 6.0, Ur Specific [place] >= 1.030, Urine Protein Negative, Urine Glucose (UA) Negative, Urine Ketones Trace, Urine Blood Negative, Urine Nitrate Negative, Urine Bilirubin 2+ A, Urine Urobilinogen 0.2, Ur Leukocyte Esterase Negative, Urine RBC Occasional, Urine WBC None, Ur Squamous Epith Cells Occasional, Urine Bacteria None Orders (Tests/Meds): ORDERS Category Date Time Status UA [Urinalysis and Microscopic] Stat Lab 09/26/23 14:15 Completed scrotum US [US Testicular] Stat Ultrasound 09/26/23 14:40 Completed Medical Decision Narrative: 32-year-old male presents today with above history differential includes orchitis epididymitis epididymal orchitis etc. Will get a scrotal ultrasound, urinalysis, gonorrhea and chlamydia amplification test from urine and reassess. Care will be transitioned to Dr. Jamil Bowie at 3 PM. Jamir: I assume primary responsibility for this patient after signout from previous physician. Urinalysis was personally interpreted, negative for any UTI. Scrotal ultrasound independently interpreted and nonconcerning for any acute pathology, but hydrocele present. Conversation with patient revealed that patient has hernia that pops in and out on his right side and causes significant pain. He was able to reduce it yesterday and has been reducible since. He has follow-up with a surgeon to further address this hernia this month. He was encouraged to keep this appointment. On my physical exam, reflexes present, mild erythema, but no evidence of tenderness or abnormal lie. Because patient at baseline without signs or symptoms of clinical decompensation, deemed appropriate for discharge. Results were relayed to patient who voiced understanding and were agreeable to outpatient management and follow up. At the time of discharge the patient was hemodynamically stable, tolerating PO, and mobilizing appropriately. Critical Care <Maia Mathews MD - Last Filed: 09/26/23 14:42> Critical Care Time Critical Care Time: No
--- NOTE | 2023-09-26 14:41 | PC.NURSE ---
RADIOLOGY NOTIFIED OF US
[2023-09-26 14:44] LABS: Microscopic, Urine URINE MICROSCOPIC (MICROSCOPIC)
--- NOTE | 2023-09-26 14:46 | PC.NURSE ---
pt going to ultrasound
[2023-09-26 14:49] LABS: Appearance,Urine CLEAR (Clear); Blood, Urine Negative (Negative); Color,Urine YELLOW (Yellow); Glucose,Urine (UA) Negative (Negative); Ketones,Urine TRACE (Negative); Leukocyte Esterase,Urine Negative (Negative); Nitrate,Urine Negative (Negative); Protein,Urine Negative (Negative); Specific Gravity, Urine >= 1.030 (1.005-1.030); Urobilinogen,Urine 0.2 EU/dl (0.2)
[2023-09-26 14:54] LABS: Bilirubin,Urine 2+ (Negative)
[2023-09-26 15:01] LABS: RBC,Urine Occasional #/hpf (0-3); Squamous Epithelial Cell,Urine Occasional #/hpf (0-5)
[2023-09-26 15:30] VITALS: BP 141/82; PULSE 81; O2SAT 96
[2023-09-26 16:01] VITALS: BP 129/112; PULSE 72; O2SAT 96
[2023-09-26 16:30] VITALS: BP 122/85; PULSE 89; O2SAT 94
[2023-09-26 16:59] VITALS: BP 122/85; PULSE 90; RESP 18; TEMP 36.7; O2SAT 95
[2023-09-30 23:31] LABS: Neisseria gonorrhoeae, NAA Negative (Negative)
== END 2023-09-26 17:00 | disposition home or self-care (01) ==
PROVIDERS: Student in an Organized Health Care Education/Training Program; Emergency Provider Emergency Medicine
DX: N43.3 Hydrocele, unspecified (principal); N50.819 Testicular pain, unspecified; F17.210 Nicotine dependence, cigarettes, uncomplicated; N50.3 Cyst of epididymis
CPT/HCPCS: 76870; 81001; 87491; 87591; 99284; 99285

== ENCOUNTER 2024-10-28 14:28 | Outpatient (CLI) | payer MEDICAID, SELFPAY ==
[2024-10-28 19:06] LABS: Basophils # 0.1 K/mm3 (0-0.2); Basophils % 0.6 % (0.1-2.0); Eosinophils # 0.1 K/mm3 (0.0-0.4); Red Cell Distribution Width 12.2 % (11.5-17.5)
[2024-10-28 19:15] LABS: Eosinophils % 1.1 % (0.1-12.0); Hemoglobin 16.8 g/dL (14.1-18.0); Lymphocytes # 3.1 K/mm3 (0.7-4.5); Lymphocytes % 32.5 % (10-50); Mean Corpuscular HGB Conc 34.3 g/dL (31.8-35.4); Mean Corpuscular Hemoglobin 31.7 pg (27.0-31.2); Mean Corpuscular Volume 92.5 fl (80-94); Mean Platelet Volume 10.3 fl (7.4-10.4); Monocytes # 0.8 K/mm3 (0.1-1.0); Monocytes % 8.2 % (1.7-9.3); Neutrophils # 5.5 K/mm3 (1.8-7.8); Neutrophils % 57.4 % (37.0-80.0); Platelet Count 273 K/mm3 (142-424); White Blood Count 9.6 K/mm3 (4.8-10.8)
[2024-10-28 19:57] LABS: Alanine Aminotransferase 29 U/L (12-78); Albumin Level 5.7 g/dl (3.5-5.0); Alkaline Phosphatase 81 U/L (38-126); Anion Gap 18.1 mEq/L (5-15); Aspartate Amino Transferase 45 U/L (17-59); Bilirubin,Total 0.9 mg/dl (0.2-1.3); Blood Urea Nitrogen 12 mg/dl (9-20); Calcium 9.9 mg/dl (8.4-10.2); Carbon Dioxide 26 mmol/L (22.0-30.0); Chloride 98 mmol/L (98-107); Chol/HDL Ratio 4.3 (1-3.5); Cholesterol 213 mg/dl (140-200); Estimated Glomerular Filt Rate 98 ml/min (>60); GFR (African American) 118 ML/MIN (>60); Globulin 2.8 g/dL (1.3-3.2); Glucose 92 mg/dl (74-100); HDL Cholesterol 49 mg/dl (40-60); Potassium 4.1 mmoL/L (3.5-5.1); Sodium 138 mmol/L (136-145); Total Protein,Serum 8.5 g/dl (6.3-8.2); Triglycerides 163 mg/dl (30-150); VLDL Cholesterol 33 mg/dL (0-40)
[2024-10-28 20:09] LABS: Direct LDL Cholesterol 123.65 mg/dL (100-129)
[2024-10-28 20:29] LABS: Thyroid Stimulating Hormone 1.03 uIU/mL (0.465-4.68)
== END 2024-10-28 23:59 | disposition home or self-care (01) ==
LOC: LAB.DROPOF 10-29 12:08
PROVIDERS: PCP Family Medicine; Visit Provider Family Medicine
DX: Z00.00 Encounter for general adult medical examination without abnormal findings (principal); M25.519 Pain in unspecified shoulder
CPT/HCPCS: 80053; 80061; 82306; 84443; 85025

== ENCOUNTER 2024-10-29 11:45 | Outpatient (CLI) | payer MEDICAID, SELFPAY ==
--- NOTE | 2024-10-29 11:48 | XR_ITS ---
FINAL REPORT CLINICAL HISTORY: right shoulder pain. no injury that the patient is aware of - stated that he woke up with pain in his right shoulder. FINDINGS: RIGHT SHOULDER Three views demonstrate no acute fracture or dislocation. The visualized joint spaces are normally aligned. The soft tissues are unremarkable. IMPRESSION: No acute process. Reviewed, Interpreted and Dictated by Sinan Hdz MD Transcribed by Sherley Hsieh Authenticated and [facility]
== END 2024-10-29 23:59 | disposition home or self-care (01) ==
LOC: RAD 11:46
PROVIDERS: PCP Family Medicine; Visit Provider Family Medicine
DX: M25.511 Pain in right shoulder (principal)
CPT/HCPCS: 73030; 80053; 80061; 82306; 84443; 85025

== ENCOUNTER 2025-03-05 21:43 | Emergency (ER) | payer MEDICAID, SELFPAY ==
--- OUTSIDE RECORDS SUMMARY | 2025-03-05 22:15 | XMS_ITS | Data Portability ---
Author Organization [facility] Address [address] [place] [id number] Assessment No assessment recorded. Plan of Treatment Reminders Order Date Submit Date Provider Last Modified By Organization Details Last Modified Time Details Appointments None recorded. Lab None recorded. Referral None recorded. Procedures None recorded. Surgeries None recorded. Imaging None recorded. Medication Orders doxycycline hyclate 100 mg capsule 2023 024 [facility], [address], [address], [place], [address], 13:22:04 meloxicam 15 mg tablet 2023 024 [facility], [address], [address], [place], [address], 13:22:03 Patient TargetsNo targets recorded. Patient InstructionsNo instructions recorded. Reason for Referral None Reported. Results Created Date Observation Date Name Description Value Unit Range Abnormal Flag Note LastModifiedBy Organization Detail LastModifiedTime 08/20/20 24 09/26/2023 vicki BOWEN No observ ation record ed. [email or web address] [facility] (Med Record) [address], [place], [address], 08/20/2024 14:17:29 08/20/20 24 09/26/2023 vicki BOWEN No observ ation record ed. [email or web address] [facility] (Med Record) [address], [place], [address], 08/20/2024 14:16:59 Result Notes None recorded. Problems Name Problem SNOMED Code Status Onset Date Resolution Date Notes Provider Name and Address Organization Details Recorded Time Orchitis and epididymitis 602352868 Active 2023 YEISON SWARTZ MD [address], [place], [address] , [place] [facility] & [place] 4 13:14:40 Problem Notes None recorded. Medical Equipment None Reported. Allergies Allergen ID Allergen Name Allergen Category Reaction Reaction Severity Criticality Documentation Date Start Date Code Code System Note Provider Name and Address Organization Details Recorded Time 181617 codeine medicatio n Not available Not available Not available 08/31/2024 2670 RxNorm [place] Jameson [facility] [place] 08:47:37 240245 Product containin g penicilli n (product) medicatio n Not available Not available Not available 08/31/2024 61651 8001 SNOMED [place] Jameson [facility] [place] 08:47:44 Medications Name Sig Start Date Stop Date Status Note LastModified by Organization Details LastModified Time doxycycline hyclate 100 mg capsule Take 1 capsule twice a day by oral route for 14 days. active Not Available Not Available No t Available meloxicam 15 mg tablet Take 1 tablet every day by oral route for 14 days. active Not Available Not Available No t Available Vitals Date Recorded Body height Body mass index (BMI) Body weight Oxygen saturation Oxygen saturation in Arterial blood by Pulse oximetry Heart rate Systolic blood pressure Diastolic blood pressure Provider Name and Address Organization Details Last Updated DateTime 4 162.56 cm 18.4 kg/m2 15598.3 8 g 99 % 99 % 66 /min 164 mm[Hg] 98 mm[Hg] Nhi SANCHES [facility] [place] 4 12:58:17 Social History Question Answer Notes LastModified by Organizat ion Details LastModified Time Tobacco Smoking Status Current Every Day Smoker [place] Jameson [facility] [place] 08/31/2024 08:48:42 What Is Your Level Of Caffeine Consumption? Occasional Information not available 09/03/2024 Which Illicit Or Recreational Drugs Have You Used? Marijuana Information not available 09/03/2024 Have You Used IV Drugs? No Information not available 09/03/2024 Sex: Unknown Functional Status Question Answer Note LastModified by Organizat ion Details LastModified Time Do you use any illicit or recreational drugs? Yes Information not available 09/03/2024 What is your level of alcohol consumption? None Information not available 08/31/2024 Mental Status None recorded. Family History Nothing Reported. Medical History No medical history recorded. Past Encounters Encounter ID Performer Location Encounter Start Date Encounter Closed Date Diagnosis/Indication Diagnosis SNOMED-CT Code Diagnosis ICD10 Code Diagnosis Note [id number] YEISON SWARTZ MD [facility] [place] [address] [place] [address] 09/03/2024 12:43:15 09/03/2024 13:17:19 Orchitis and epididymitis 803810047 N45.3 physical exam and symptoms consistent with epididymo- orchitis. There was no evidence of torsion at this time. Cremasteri c reflexes intact as the right testis is high-ridin g. We will start a 2 week course of doxycyclin e with meloxicam. I have given the patient explicit instructio ns to contact our office if he experience s any fever, chills, or an abnormal lie of the testicle with acutely worsened pain which could suggest torsion. Otherwise, we will follow up in 3 weeks with tele visit Health Concerns Section Related Observation LastModified by Organization Detai ls LastModified Time None Recorded Concern Status LastModified by Organization Details LastModified Time None Recorded Advance Directives Directive None Recorded Payers Insurance Date Sequence Insurance Name Policy Number Policy Leblanc Covered Member ID Leblanc Member ID Guarantor Name 09/21/2024 1 [facility] (MEDICAID HMO) Calin Guallpa [id number] Calin Ramu Notes Date Note Type Note Provider Name and Address Organization Details Recorded Time 09/03/2024 text/html 09/03/24 33M referred for Right testicular pain. Patient states the symptoms began approximately 1 month ago. Since that began, he feels that the testicle is sitting higher than normal. He denies any associated symptoms such as fever, low back pain, dysuria, or irritative voiding symptoms. 09/26/23 Scrotal US ([facility]): Small left hydrocele. 3 mm cyst in the right epididymal head YEISON SWARTZ MD [address], [place], [address], [place] - [place] - [place] & [place] 09/03/2024 13:15:56
[2025-03-05 22:28] VITALS: BP 130/87; PULSE 65; RESP 16; TEMP 36.6; O2SAT 100; BMI 19.5
[2025-03-05 23:00] VITALS: BP 134/87; PULSE 66; RESP 16; O2SAT 99
[2025-03-05] MEDS: diphenhydrAMINE 25MG CAPSULE 50 MG PO (23:08)
--- NOTE | 2025-03-05 23:18 | ED_ITS ---
Discharge Plan Disposition Patient Disposition: Home, Self-Care Condition: Good Prescriptions Prescriptions: No Action No Known Home Medications methylprednisolone [Medrol (Abdoul)] 4 mg tablets,dose pack See Rx Instructions PO PER PKG DIR Qty: 21 0RF Rx Instructions: PO PER PKG DIR ibuprofen 800 mg tablet 800 mg PO Q8H 7 Days Qty: 21 2RF Referrals Follow up/Referrals: Mariama Andrew APRN [Primary Care Provider, Family Practice] - See instructions Activity Restrictions/Add. Instructions Additional Instructions/Restrictions: You were evaluated in the emergency department today. As we discussed, we feel that you likely have an insect bite to your forearm. At this time, I am not concerned for infection. Take Benadryl every 8 hours as needed for itching. Take Tylenol and ibuprofen as needed for pain. Monitor for any signs of infection, such as significant worsening of redness, warmth, or streaking up your arm. Return to the emergency department for any new or worsening symptoms. Clinical Impressions Clinical Impression: Insect bite Stand Alone Forms Stand Alone Forms: Work/School Release Instructions Patient Instructions: DI for Insect Bites and Stings Print Language Print Language: Maori Discharge ED Provider: Danielle Torres General Adult HPI General Chief complaint: Skin/Abscess/Foreign Body Stated complaint: swelling in lf arm poss bite or sting Time Seen by Provider: 03/05/25 22:20 Mode of Arrival: Ambulatory Source of Information: Relative Description of Symptoms (Recalled from ER Triage Doc. by RN): Patient to ED with family at side with complaints of distal left arm pain. Patient states that bump on left arm showed up approx 2130. Unaware of what caused irriation, but pt assumes bug bite. Describes pain 5/10, aching. area is warm to touch, sensation intact in left hand. History of Present Illness HPI narrative: This patient is a 34-year-old male who denies significant past medical history aside from tobacco abuse presenting to the emergency department for evaluation with concern for a bump on his left forearm. He states that it showed up just prior to arrival. He notes that he was moving a washer and dryer prior to it showing up. He denies any pain associated with this, only localized redness and swelling. No fevers, chills, or other concerns. He denies any history of IV drug use. Related Data Home Medications ?Medication ?Instructions ?Recorded ?Confirmed No Known Home Medications 09/17/2310/17 Previous Rx's ?Medication ?Instructions ?Recorded ibuprofen 800 mg tablet 800 mg PO Q8H 1 week #21 tab s 10/28/24 methylprednisolone 4 mg tablets in See Rx Instructions PO PER PKG DIR 10/28/24 a dose pack (Medrol (Abdoul)) #21 tabs Allergies Allergy/AdvReac Type Severity Reaction Status Date / Time codeine (CODEINE) Allergy Mild Verified 10/28/24 13:37 Penicillins (PENICILLINS) Allergy Unknown Verified 10/28/24 13:37 [facility] Disclaimer: The information contained in this section may have been updated after the patient was seen, as this information can be updated by other users. Medical History Hydrocele Retractile testis Skin problem Lumbar back sprain Conjunctivitis Puncture wound of foot No significant past medical history Encounter for laboratory testing for COVID-19 virus Patient left without being seen Poisoning by opiate or related narcotic Impacted cerumen of left ear Otitis externa Cellulitis Callous ulcer, limited to breakdown of skin Abscess Finger injury Low back pain Family History Other Asthma Cancer Social History Smoking Status: Current every day smoker tobacco type: cigarettes packs per day: 1 alcohol intake: never substance use type: denies use current occupational status: unemployed Travel in the last 8 weeks?: None Have you lived/traveled outside US in past 30 days?: No Contact w/someone who lives/traveled outside US past 30 days?: No Exposure to someone with infectious disease in past 14 days?: No Do you have a fever (greater than 100.4 F or 38 C)?: No Have you tested positive for COVID-19?: No Exposed to someone with COVID-19 in past 14 days?: No Do you have a sore throat?: No Do you have a cough?: No Do you have any weakness?: No Do you have any diarrhea?: No Are you experiencing any unusual bleeding?: No Do you have any muscle aches/pain?: No Do you have any abdominal pain?: No Are you experiencing loss of taste or smell?: No Other Medical History Have you received the Flu Vaccine for this season: No Have you received the Pneumonia Vaccine: No ROS Obtained: Yes All systems reviewed & no additional complaints except as documented Physical Exam General General appearance: alert and in no apparent distress Head Head exam: atraumatic and normocephalic Eye Eye exam: Present normal appearance, PERRL and EOMI ENT ENT exam: Present normal exam, normal oropharynx, mucous membranes moist and normal external ear exam Neck Neck exam: Present normal inspection, full ROM and trachea midline; Absent tenderness Chest Chest inspection: Present normal inspection and symmetric chest wall rise; Absent tenderness Respiratory Respiratory exam: Present normal lung sounds bilaterally; Absent respiratory distress, wheezes, stridor or accessory muscle use Cardiovascular Cardiovascular exam: Present regular rate and normal rhythm Abdominal Exam Abdominal exam: Present soft; Absent distention, tenderness or guarding Extremities Exam Extremities exam: Present full ROM and normal capillary refill; Absent tenderness or edema Expanded Upper Extremity Exam Left: L/R Arms Top View: 2 1. Very localized raised area of erythema consistent with likely insect bite. No significant red streaking away. Neurovascularly intact distally. Back Exam Back exam: Present normal inspection and full ROM; Absent tenderness Neurological Exam Neurological exam: Present alert, oriented X3, CN II-XII intact and normal gait; Absent motor sensory deficit Psychiatric Psychiatric exam: Present normal affect and normal mood Skin Skin exam: Present warm and dry Medical Decision Making Medical Records Medical records reviewed: Yes I reviewed the patient's medical records. Screening: Per USPSTF and CDC recommendations, given the prevalence of disease in our region, it is our hospital?s policy to screen for HIV and viral Hepatitis for all patients aged 18 and over and those with ongoing risk factors. Teddy Inquiry Pt receiving controlled substance: No Vital Signs: 03/05/25 22:28 Temperature 97.9 F Temperature Source Oral Pulse Rate [Left] 65 Respiratory Rate 16 Blood Pressure [Right Arm] 130/87 Blood Pressure Mean [Right Arm] 101 Blood Pressure Source [Right Arm] Automatic Cuff Blood Pressure Position [Right Arm] Supine 02 Sat by Pulse Oximetry 100 Oxygen Delivery Method Room Air Lab Data Lab results reviewed: Yes I reviewed the patient's lab results. Orders (Tests/Meds): ED MEDICATIONS Discontinued Medications Generic Name Dose Route Start Last Admin Trade Name Freq PRN Reason Stop Dose Admin Diphenhydramine HCl 50 mg 03/05/25 23:05 03/05/25 23:08 Diphenhydramine 25mg Capsule PO 03/05/25 23:06 50 mg ONCE ONE Administration ORDERS Category Date Time Status POCUS Point of Care (ER Only) Stat Exams 03/05/25 22:45 Ordered Medical Decision Narrative: In summary, this patient is a 34-year-old male presenting to the Emergency Department for evaluation of possible insect bite to the left forearm. Differential diagnoses considered include but are not limited to insect bite, cellulitis, abscess. Ruling out the most morbid conditions drove assessment. On exam, the patient is well-appearing. I feel that he likely has an insect bite, but I did perform a bedside ultrasound to rule out abscess as a cause. Ultrasound did not show any concern for abscess, only a small amount of localized cobblestoning consistent with swelling. I do not feel that he likely has cellulitis, as his area of erythema is very localized to this raised bump, and it started acutely prior to arrival after moving a washer and dryer. It is possible he could have gotten some sort of insect/spider bite while doing this. I feel it is appropriate for discharge home with instructions for supportive care and monitoring. He was given strict return precautions as well as PCP follow-up for recheck. Procedures Limited Ultrasound Findings:: Limited soft tissue ultrasound Indication: Soft tissue swelling and redness Identified structures: Location: Left forearm Findings: Very localized cobblestoning consistent with local edema, no abscess Impression: Cobblestoning of soft tissue, no abscess, no vascular normal Images are saved to permanent archive The study was technically adequate Soft Tissue CPT Codes: CPT Neck: 85413-43 CPT Upper extremity: 41528-23 CPT Axilla: 68751-00 CPT Chest wall: 61679-27 CPT Breast: 06926-55-MI/LT (complete), 96535-65-QN/LT (limited), CPT Upper Back: 12145-71 CPT Lower Back: 07249-69 CPT Abdominal Wall: 72467-39 CPT Pelvic Wall: 57221-17 CPT Lower Extremity: 13730-03 CPT Other Soft Tissue: 95660-09 This study was performed by me, and I personally interpreted all images/videos. Based on my clinical judgement, these images were adequate and did not necessitate further imaging. Critical Care Critical Care Time Critical Care Time: No
[2025-03-05 23:21] VITALS: BP 134/87; PULSE 66; RESP 16; TEMP 36.4; O2SAT 99
== END 2025-03-05 23:21 | disposition home or self-care (01) ==
PROVIDERS: Emergency Provider Emergency Medicine; PCP Family Medicine
DX: S50.862A Insect bite (nonvenomous) of left forearm, initial encounter (principal); R22.32 Localized swelling, mass and lump, left upper limb; F17.210 Nicotine dependence, cigarettes, uncomplicated; W57.XXXA Bitten or stung by nonvenomous insect and other nonvenomous arthropods, initial encounter
CPT/HCPCS: 99284

== ENCOUNTER 2025-05-19 16:03 | Emergency (ER) | payer MEDICAID, SELFPAY ==
[2025-05-19 16:18] VITALS: BP 127/87; PULSE 78; RESP 16; TEMP 37.2; O2SAT 98; BMI 18.8
--- NOTE | 2025-05-19 16:28 | ED_ITS ---
<Statement entered by Sam Pena MD - 05/20/25 04:15> I was consulted by the ADDISON, and we discussed the complexity of the problems being addressed. I approve the treatment and management plan for this patient's care in the emergency department, thus performing a substantive portion of the medical decision making. Sam Pena MD Discharge Plan Disposition Patient Disposition: Home, Self-Care Prescriptions Prescriptions: New naproxen 500 mg tablet 500 mg PO Q12H PRN (Reason: pain) Qty: 14 0RF methocarbamol 750 mg tablet 750 mg PO BID 10 Days Qty: 30 0RF No Action methylprednisolone [Medrol (Abdoul)] 4 mg tablets,dose pack See Rx Instructions PO PER PKG DIR Qty: 21 0RF Rx Instructions: PO PER PKG DIR ibuprofen 800 mg tablet 800 mg PO Q8H 7 Days Qty: 21 2RF Referrals Follow up/Referrals: Mariama Andrew APRN [Primary Care Provider, Family Practice] - See instructions Activity Restrictions/Add. Instructions Additional Instructions/Restrictions: Thank you for allowing us to care for you. You likely sustained a low back strain. Please take the anti-inflammatory as prescribed. Use the muscle relaxer twice a day as needed for muscle tightness. This medication can make you sleepy do not drive or operate machinery while taking it. Follow-up with your primary care provider if symptoms are not improving. If you have any bowel or bladder incontinence, you should return to the emergency department. Clinical Impressions Clinical Impression: Lumbar strain, Low back pain Instructions Patient Instructions: Low Back Pain, DI for Back Strain or Sprain Print Language Print Language: Belarusian Discharge ED Provider: Sam Pena General Adult HPI General Chief complaint: PAIN Stated complaint: LOWER BACK PAIN Time Seen by Provider: 05/19/25 16:23 Mode of Arrival: Ambulatory Source of Information: Patient and Relative Description of Symptoms (Recalled from ER Triage Doc. by RN): patient presents to the ED for a possible kidney stone. Patient does not have a history, no troubles urinating, no noticeable blood or other colored urine. Pain is mid lower back, does not radiate anywhere else. Patient was seen at [facility] but was referred to the ED for further management. History of Present Illness HPI narrative: This is a 34-year-old male presenting to the emergency department today for evaluation of left sided low back pain. Patient reports 4 days of left-sided lower back pain. Patient reports people suggested trying cranberry juice and drinking a beer. Neither these have helped. He has not attempted any other medications. Patient does not recall any injury though does state he lifts heavy things at work and may have injured his back doing this. He does not have any numbness or tingling in the extremities and does not have any radiating symptoms down the legs. He denies any saddle anesthesia. He has not had any dysuria or blood in the urine. No history of kidney stones. He has not had any bowel or bladder incontinence. He denies abdominal pain. No fever. Please note that the above description of symptoms, and this electronic medical record under categorization of was recalled from ER triage doctor by RN reflective of an initial nursing assessment, however, is not reflective of my full history and physical exam I was personally taken and clarified. Consequentially, this preceding description of symptoms which may include the patient's categorize chief complaint in the EMR, do not reflect my personal clinical impression, and the ultimate description of history of present illness send patient stated complaints should be deferred to the section of the note. Unless stated otherwise were congruent with the section of the note, additional signs, symptoms, or incongruence should be interpreted as an accurate with my clinical impression. Related Data Previous Rx's ?Medication ?Instructions ?Recorded ibuprofen 800 mg tablet 800 mg PO Q8H 1 week #21 tab s 10/28/24 methylprednisolone 4 mg tablets in See Rx Instructions PO PER PKG DIR 10/28/24 a dose pack (Medrol (Abdoul)) #21 tabs methocarbamol 750 mg tablet 750 mg PO BID 10 days #30 tabs 05/19/25 naproxen 500 mg tablet 500 mg PO Q12H PRN pain #14 tabs 05/19/25 Allergies Allergy/AdvReac Type Severity Reaction Status Date / Time codeine (CODEINE) Allergy Mild Verified 10/28/24 13:37 Penicillins (PENICILLINS) Allergy Unknown Verified 10/28/24 13:37 [facility] Disclaimer: The information contained in this section may have been updated after the patient was seen, as this information can be updated by other users. Medical History Hydrocele Retractile testis Skin problem Lumbar back sprain Conjunctivitis Puncture wound of foot No significant past medical history Encounter for laboratory testing for COVID-19 virus Patient left without being seen Poisoning by opiate or related narcotic Impacted cerumen of left ear Otitis externa Cellulitis Callous ulcer, limited to breakdown of skin Abscess Finger injury Low back pain Family History Other Asthma Cancer Social History Smoking Status: Current every day smoker tobacco type: cigarettes packs per day: 1 alcohol intake: never substance use type: denies use current occupational status: unemployed Travel in the last 8 weeks?: None Have you lived/traveled outside US in past 30 days?: No Contact w/someone who lives/traveled outside US past 30 days?: No Exposure to someone with infectious disease in past 14 days?: No Do you have a fever (greater than 100.4 F or 38 C)?: No Have you tested positive for COVID-19?: No Exposed to someone with COVID-19 in past 14 days?: No Do you have a sore throat?: No Do you have a cough?: No Do you have any weakness?: No Do you have any diarrhea?: No Are you experiencing any unusual bleeding?: No Do you have any muscle aches/pain?: No Do you have any abdominal pain?: No Are you experiencing loss of taste or smell?: No Other Medical History Have you received the Flu Vaccine for this season: No Have you received the Pneumonia Vaccine: No ROS Obtained: Yes Systems reviewed as appropriate & no additional complaints except as documented Physical Exam General General appearance: alert and in no apparent distress Head Head exam: atraumatic and normocephalic Neck Neck exam: Present full ROM Respiratory Respiratory exam: Present normal lung sounds bilaterally; Absent respiratory distress Cardiovascular Cardiovascular exam: Present regular rate and normal rhythm Abdominal Exam Abdominal exam: Present soft; Absent distention or tenderness Back Exam Back exam: Present normal inspection, full ROM and paraspinal tenderness (Left); Absent vertebral tenderness, straight leg raise (R) or straight leg raise (L) Comment: Normal lower extremity sensation. No saddle anesthesia. Neurological Exam Neurological exam: Present alert and oriented X3 Medical Decision Making Medical Records Screening: Per USPSTF and CDC recommendations, given the prevalence of disease in our region, it is our hospital?s policy to screen for HIV and viral Hepatitis for all patients aged 18 and over and those with ongoing risk factors. Teddy Inquiry Pt receiving controlled substance: No Vital Signs: 05/19/25 16:18 Temperature 99.0 F Temperature Source Temporal Artery Scan Pulse Rate [Left Radial] 78 Respiratory Rate 16 Blood Pressure [Left Arm] 127/87 Blood Pressure Mean [Left Arm] 100 Blood Pressure Source [Left Arm] Automatic Cuff Blood Pressure Position [Left Arm] Sitting 02 Sat by Pulse Oximetry 98 Oxygen Delivery Method Room Air Lab Data Lab Results 05/19/25 17:22: Urine Color Yellow, Urine Appearance Clear, Urine pH 7.0, Ur Specific [place] 1.020, Urine Protein Negative, Urine Glucose (UA) Negative, Urine Ketones Negative, Urine Blood Negative, Urine Nitrate Negative, Urine Bilirubin Negative, Urine Urobilinogen 0.2, Ur Leukocyte Esterase Negative, Urine RBC Occasional, Urine WBC 3-5, Ur Squamous Epith Cells None, Urine Bacteria Trace Orders (Tests/Meds): ED MEDICATIONS Discontinued Medications Generic Name Dose Route Start Last Admin Trade Name Willam PRN Reason Stop Dose Admin Ketorolac Tromethamine 15 mg 05/19/25 16:35 05/19/25 16:51 Ketorolac 15mg/Ml Vial IM 05/19/25 16:36 15 mg ONCE ONE Administration Lidocaine 1 each 05/19/25 16:35 05/19/25 16:51 Lidocaine 5% Transdermal Patch TD 05/19/25 16:36 1 each ONCE ONE Administration ORDERS Category Date Time Status Lumbar spine XR 2-3 views [XR lumbar spine 2-3V] Stat Exams 05/19/25 16:35 Completed Urinalysis and Microscopic Stat Lab 05/19/25 17:22 Completed Urine Culture Stat Micro 05/19/25 17:22 Received Medical Decision Narrative: In summary, this is a 34-year-old male presenting to the emergency department today for evaluation of left lower back pain. Patient does not recall a specific injury though does lift heavy things at work and suspects this may have irritated something in his back. At home he attempted cranberry juice without relief in symptoms. He also tried to drink a beer which did not relieve his symptoms. Patient denies any hematuria, flank pain, bowel or bladder incontinence. No fever. On exam patient is well-appearing and in no acute distress. Sitting comfortably on hospital stretcher. Respiratory rate and effort are normal and the lungs are clear to auscultation bilaterally with adventitious sounds. Abdomen is soft, nondistended, nontender to palpation. No CVA tenderness. There is no tenderness to palpation or step-offs appreciated to the spinal processes. There is tenderness to the left paraspinal muscles in the lumbar region. Negative straight leg raise. Normal sensation to the lower extremities. Differential diagnoses include but are not limited to muscle strain, muscle spasm, degenerative disc disease, sciatica, fracture, nephrolithiasis, among others. We will obtain lumbar x-ray and urinalysis. Will give intramuscular Toradol and a lidocaine patch. Will reassess. Lumbar x-ray without any bony abnormality. Awaiting urinalysis. Urinalysis without evidence of infection or blood in the urine. Exam and workup consistent with lumbar muscle strain. Discussed symptomatic management with multimodal pain control. We will discharge patient home with anti- inflammatories and muscle relaxer. Patient has lidocaine patches at home that he will continue to use. If any symptoms worsen or he develops any hematuria or bowel or bladder incontinence he knows to return to the emergency department. Patient is appropriate for safe discharge home at this time and all questions have been answered. Critical Care Critical Care Time Critical Care Time: No
--- NOTE | 2025-05-19 16:35 | XR_ITS ---
PROCEDURE INFORMATION: Exam: XR Lumbosacral Spine Exam date and time: 05/19/2025 4:55 PM Age: 34 years old Clinical indication: Low back pain; Additional info: Left sided low back pain TECHNIQUE: Imaging protocol: Radiologic exam of the lumbosacral spine. Views: 2 or 3 views. COMPARISON: No relevant prior studies available. FINDINGS: Vertebrae: No acute fracture. Normal alignment. Soft tissues: Unremarkable. IMPRESSION: No fracture. If back pain persists, consider MRI for further evaluation.
[2025-05-19] MEDS: KETOROLAC 15MG/ML VIAL 15 MG IM (16:51)
[2025-05-19] MEDS: LIDOCAINE 5% TRANSDERMAL PATCH 1 EACH TD (16:51)
[2025-05-19 17:31] LABS: Microscopic, Urine URINE MICROSCOPIC (MICROSCOPIC)
[2025-05-19 17:47] LABS: Bilirubin,Urine Negative (Negative); Color,Urine YELLOW (Yellow); Glucose,Urine (UA) Negative (Negative); Ketones,Urine Negative (Negative); Leukocyte Esterase,Urine Negative (Negative); PH,Urine 7.0 (5.0-8.5); Protein,Urine Negative (Negative); Specific Gravity, Urine 1.020 (1.005-1.030); Urobilinogen,Urine 0.2 EU/dl (0.2)
[2025-05-19 18:27] LABS: Bacteria,Urine Trace /lpf; RBC,Urine Occasional #/hpf (0-3)
[2025-05-19 18:40] VITALS: BP 113/73; PULSE 78; RESP 18; TEMP 36.8; O2SAT 100
== END 2025-05-19 18:42 | disposition home or self-care (01) ==
PROVIDERS: Physician Assistant; Emergency Provider Student in an Organized Health Care Education/Training Program; PCP Family Medicine
DX: S39.012A Strain of muscle, fascia and tendon of lower back, initial encounter (principal); F17.210 Nicotine dependence, cigarettes, uncomplicated; X58.XXXA Exposure to other specified factors, initial encounter
CPT/HCPCS: 72100; 81001; 87086; 96372; 99284; J1885

== ENCOUNTER 2025-06-28 09:47 | Emergency (ER) | payer MEDICAID, SELFPAY ==
[2025-06-28 09:54] VITALS: BP 155/115; PULSE 74; RESP 15; TEMP 36.8; O2SAT 98; BMI 18.6
--- NOTE | 2025-06-28 10:02 | ED_ITS ---
<Statement entered by Walt Skaggs MD - 06/28/25 21:18> I independently examined this patient. L sided CP reproducible. Stable. Good breath sounds. No increased WOB. CXR interpreted by me to show no PNX or PNA. Heart normal size. He is a contracts intern. Likely MSK strain. No exertional or anginal sx. MMPC. Return precautions. I was consulted by the ADDISON, and we discussed the complexity of problems being addressed. I approved the treatment and management plan for this patient's care in the emergency department, thus performing a substantial portion of the medical decision making. Walt Skaggs MD Discharge Plan Disposition Patient Disposition: Home, Self-Care Condition: Good Prescriptions Prescriptions: New ibuprofen 600 mg tablet 600 mg PO Q8H PRN (Reason: pain) Qty: 15 0RF cyclobenzaprine 10 mg tablet 10 mg PO TID PRN (Reason: muscle spasm) Qty: 15 0RF No Action methylprednisolone [Medrol (Abdoul)] 4 mg tablets,dose pack See Rx Instructions PO PER PKG DIR Qty: 21 0RF Rx Instructions: PO PER PKG DIR ibuprofen 800 mg tablet 800 mg PO Q8H 7 Days Qty: 21 2RF naproxen 500 mg tablet 500 mg PO Q12H PRN (Reason: pain) Qty: 14 0RF methocarbamol 750 mg tablet 750 mg PO BID 10 Days Qty: 30 0RF Referrals Follow up/Referrals: Mariama Andrew APRN [Primary Care Provider, Family Practice] - See instructions Activity Restrictions/Add. Instructions Additional Instructions/Restrictions: You were evaluated on an emergency basis. It is very important that you follow- up with your primary care provider and any specialist who we discussed within the next 2 days in order to better assess your health more comprehensively. For example, incidental findings on imaging or laboratory results that were performed today may be discovered, which do not require immediate medical care, but may impact your health in the future. If your symptoms worsen or persist, please return to the emergency department immediately for reassessment. Take all medications as prescribed. In queue for allowing me to participate in your health care, and I hope you feel better soon. Clinical Impressions Clinical Impression: Acute chest wall pain Instructions Patient Instructions: DI for Musculoskeletal Pain Print Language Print Language: Romanian Discharge ED Provider: Walt Skaggs General Adult HPI General Chief complaint: PAIN Stated complaint: Pain, Left rib/back Time Seen by Provider: 06/28/25 10:02 Mode of Arrival: Ambulatory Source of Information: Patient Description of Symptoms (Recalled from ER Triage Doc. by RN): Reports pain on the left side of his back that extends around to his ribs. Denies any known injury. Pain worsens w/ inspiration and coughing. Rates pain 5/10. History of Present Illness HPI narrative: 34-year-old male presents emergency department complaints of left lateral chest wall pain that started yesterday morning. Denies any known injury to the area. He states he has tried Tylenol and ibuprofen without relief of symptoms. He reports he does smoke cigarettes as well as marijuana. He denies recreational drug use or alcohol use. He denies cough or fevers. Related Data Previous Rx's ?Medication ?Instructions ?Recorded ibuprofen 800 mg tablet 800 mg PO Q8H 1 week #21 tab s 10/28/24 methylprednisolone 4 mg tablets in See Rx Instructions PO PER PKG DIR 10/28/24 a dose pack (Medrol (Abdoul)) #21 tabs methocarbamol 750 mg tablet 750 mg PO BID 10 days #30 tabs 05/19/25 naproxen 500 mg tablet 500 mg PO Q12H PRN pain #14 tabs 05/19/25 cyclobenzaprine 10 mg tablet 10 mg PO TID PRN muscle s pasm #15 06/28/25 tabs ibuprofen 600 mg tablet 600 mg PO Q8H PRN pain #15 t abs 06/28/25 Allergies Allergy/AdvReac Type Severity Reaction Status Date / Time codeine (CODEINE) Allergy Mild Verified 10/28/24 13:37 Penicillins (PENICILLINS) Allergy Unknown Verified 10/28/24 13:37 [facility] Disclaimer: The information contained in this section may have been updated after the patient was seen, as this information can be updated by other users. Medical History Hydrocele Retractile testis Skin problem Lumbar back sprain Conjunctivitis Puncture wound of foot No significant past medical history Encounter for laboratory testing for COVID-19 virus Patient left without being seen Poisoning by opiate or related narcotic Impacted cerumen of left ear Otitis externa Cellulitis Callous ulcer, limited to breakdown of skin Abscess Finger injury Low back pain Family History Other Asthma Cancer Social History (Updated 06/28/25 @ 09:53 by Felicitas Zavala RN) Smoking Status: Current every day smoker tobacco type: cigarettes packs per day: 1 alcohol intake: never substance use type: denies use current occupational status: unemployed Travel in the last 8 weeks?: None Have you lived/traveled outside US in past 30 days?: No Contact w/someone who lives/traveled outside US past 30 days?: No Exposure to someone with infectious disease in past 14 days?: No Do you have a fever (greater than 100.4 F or 38 C)?: No Have you tested positive for COVID-19?: No Exposed to someone with COVID-19 in past 14 days?: No Do you have a sore throat?: No Do you have a cough?: No Do you have any weakness?: No Are you experiencing any nausea/vomitting?: No Do you have any diarrhea?: No Are you experiencing any unusual bleeding?: No Do you have any muscle aches/pain?: Yes Do you have any abdominal pain?: No Are you experiencing loss of taste or smell?: No Other Medical History Have you received the Flu Vaccine for this season: No Have you received the Pneumonia Vaccine: No ROS Obtained: Yes other Respiratory Respiratory: Reports pain on inspiration Physical Exam Narrative Physical exam: General: Awake, aware, in no acute distress HEENT: Normocephalic, no evidence of trauma CV: RRR, no murmurs, rubs, or gallops Pulm: CTA bilaterally with no rhonchi, rales, wheezes ABD: Nontender, no swelling, guarding, or rebound tenderness Psych, appropriate mood and affect General General appearance: alert Chest Chest inspection: Present tenderness (Left lateral chest wall. No erythema, ecchymosis, edema or deformities noted.) Respiratory Respiratory exam: Present normal lung sounds bilaterally Cardiovascular Cardiovascular exam: Present regular rate Neurological Exam Neurological exam: Present alert Medical Decision Making Medical Records Screening: Per USPSTF and CDC recommendations, given the prevalence of disease in our region, it is our hospital?s policy to screen for HIV and viral Hepatitis for all patients aged 18 and over and those with ongoing risk factors. Teddy Inquiry Pt receiving controlled substance: No Vital Signs: 06/28/25 09:54 06/28/25 11:23 Temperature 98.2 F Temperature Source Oral Pulse Rate 65 Pulse Rate [Radial] 74 Respiratory Rate 15 Blood Pressure 140/90 Blood Pressure [Right Arm] 155/115 H Blood Pressure Mean [Right Arm] 128 Blood Pressure Source [Right Arm] Automatic Cuff Blood Pressure Position [Right Arm] Sitting 02 Sat by Pulse Oximetry 98 100 Oxygen Delivery Method Room Air Room Air Orders (Tests/Meds): ED MEDICATIONS Discontinued Medications Generic Name Dose Route Start Last Admin Trade Name Willam PRN Reason Stop Dose Admin Ketorolac Tromethamine 30 mg 06/28/25 10:08 06/28/25 10:15 Ketorolac 30mg/Ml Vial IM 06/28/25 10:09 30 mg ONCE ONE Administration Orphenadrine Citrate 60 mg 06/28/25 10:08 06/28/25 10:14 Orphenadrine Citrate 60mg/2ml Vial IM 06/28/25 10:09 60 mg ONCE ONE Administration ORDERS Category Date Time Status Chest XR 2 view (NOT portable) [XR chest 2V] Stat Exams 06/28/25 10:08 Taken Medical Decision Narrative: Initial impression of presenting illness: 34-year-old male presents emergency department complaints of left lateral chest wall pain that started yesterday. He denies any known injury to the area. He does report daily tobacco use as well as marijuana. Denies recreational drug use or alcohol consumption. States he has tried taking ibuprofen and Tylenol without relief of symptoms. He denies cough, shortness of breath, fever. Differential diagnosis includes but is not limited to: Contusion, rib fracture, pleurisy, pneumonia Patient arrives hemodynamically stable, afebrile, without respiratory distress with vital signs interpreted by myself. Initial physical exam reveals tenderness on palpation to lef lateral chest wall. The area is without ecchymosis, erythema, deformity, or edema. Lung sounds are clear bilaterally. Rest of exam unremarkable Initial diagnostic plan: Two-view chest x-ray. Toradol and Norflex for pain control Results from initial plan were reviewed and interpreted by myself, pertinent positives include: X-ray unremarkable for acute findings. Interventions in the ED: Patient was given Norflex and Toradol for pain control. Patient was made aware of the results and the findings, upon reevaluation patient has remained stable throughout stay, symptoms have improved. Upon evaluation patient is resting comfortably in bed with no signs of acute distress. Disposition: Reviewed findings today's workup with patient informed no acute abnormalities were noted on the x-ray. Advised patient that we will treat with anti-inflammatories and muscle relaxer for musculoskeletal strain. Recommended that he has for a few days. Instructed her to return to the emergency department if he develops shortness of breath, fever, chest pain otherwise he may follow-up with his primary care provider as needed. Patient was agreeable to plan of care. Patient made aware of findings and had a detailed discussion with symptomatic care and return precautions, patient voiced understanding. Critical Care Critical Care Time Critical Care Time: No
--- NOTE | 2025-06-28 10:08 | XR_ITS ---
FINAL REPORT CLINICAL HISTORY: left lateral chest wall pain FINDINGS: 2 views of the chest were obtained . The heart is normal in size. The mediastinum is within normal limits. There is biapical pleural scarring. The lungs are otherwise clear. There is no pneumothorax. Osseous structures are unremarkable. IMPRESSION: No acute cardiopulmonary process. Reviewed, Interpreted and Dictated by Lenka Plata MD Transcribed by Sherley Hsieh Authenticated and [facility]
[2025-06-28] MEDS: ORPHENADRINE CITRATE 60MG/2ML VIAL 60 MG IM (10:14)
[2025-06-28] MEDS: KETOROLAC 30MG/ML VIAL 30 MG IM (10:15)
[2025-06-28 11:23] VITALS: BP 140/90; PULSE 65; O2SAT 100
[2025-06-28 12:06] VITALS: BP 144/86; PULSE 60; RESP 16; TEMP 36.6; O2SAT 99
== END 2025-06-28 12:06 | disposition home or self-care (01) ==
PROVIDERS: Emergency Provider Emergency Medicine; PCP Family Medicine
DX: R07.89 Other chest pain (principal); F17.210 Nicotine dependence, cigarettes, uncomplicated
CPT/HCPCS: 71046; 96372; 99283; J1885; J2360